=== PATIENT | female | born 1980 | race African-American/Black ===

== ENCOUNTER 2018-09-10 10:38 | Emergency (ER) | payer OTHER ==
[~2018-09-10] VITALS: Ht 154.9 cm; Wt 61.2 kg
[2018-09-10 10:58] LABS: URINE BILIRUBIN NEGATIVE (Negative); URINE BLOOD NEGATIVE (Negative); URINE CLARITY CLEAR; URINE COLOR YELLOW; URINE GLUCOSE-RANDOM* NEGATIVE (Negative); URINE KETONES NEGATIVE (Negative); URINE LEUKOCYTES-REFLEX NEGATIVE (Negative); URINE NITRITE-REFLEX NEGATIVE (Negative); URINE PROTEIN (DIPSTICK) NEGATIVE (Negative); URINE SPECIFIC GRAVITY 1.025 (1.005-1.035)
[2018-09-10] MEDS ORDERED: TUMERIC (11:06)
[2018-09-10] MEDS ORDERED: GINSENG100 MG PO (11:06)
[2018-09-10] MEDS ORDERED: VITAMIN A10000 UNI3 PO (11:06)
[2018-09-10] MEDS ORDERED: IBUPROFEN 600600 M1 PO (11:06)
[2018-09-10 12:12] LABS: HEMATOCRIT 29.6 % (37.0-47.0); HEMOGLOBIN 9.3 gm/dL (12.0-15.0); MCH 30.5 pg (26.0-34.0); MCHC 31.6 g/dL (28.0-37.0); MCV 96.8 fL (80.0-100.0); RBC 3.05 mil/uL (4.20-5.00); RDW 18.1 % (10.5-14.5); WBC 8.8 thou/uL (4.0-11.0)
[2018-09-10 12:23] LABS: CALCIUM 7.8 mg/dL (8.5-10.1); CREATININE 0.6 mg/dL (0.6-1.0); POTASSIUM 3.6 mmol/L (3.5-5.1)
[2018-09-10] MEDS ORDERED: CYCLOBENZAPRINE5 MG PO (12:51)
[2018-09-10] MEDS ORDERED: NORCO 10-325 T1 EACH PO (12:51)
[2018-09-10 13:15] VITALS: BP 102/66
== END 2018-09-10 13:17 | disposition home or self-care (01) ==
LOC: ER 10:38
PROVIDERS: Physician Assistant
DX: M54.41 Lumbago with sciatica, right side (principal); M79.661 Pain in right lower leg; M41.9 Scoliosis, unspecified; M79.7 Fibromyalgia; E03.9 Hypothyroidism, unspecified

== ENCOUNTER → 2018-11-06 | Outpatient (CLI) | payer OTHER ==
[~2018-11-06] MED LIST: CYCLOBENZAPRINE5 MG PO; GINSENG100 MG PO; IBUPROFEN 600600 M1 PO; NORCO 10-325 T1 EACH PO; TUMERIC; VITAMIN A10000 UNI3 PO
== END ==
LOC: NUC 15:28
DX: M81.0 Age-related osteoporosis without current pathological fracture (principal)

== ENCOUNTER → 2018-11-06 | Outpatient (CLI) | payer OTHER | LOC: RAD 09:12 | DX: M41.86 Other forms of scoliosis, lumbar region (principal) ==

== ENCOUNTER 2018-11-21 16:00 | Inpatient (IN) | payer OTHER ==
[~2018-11-21] VITALS: Ht 154.9 cm; Wt 58.9 kg
--- NOTE | ~2018-11-21 | HC ---
[facility] [place] [address] CONSULTATION Name: KELSEA KENNY Room #: 208-P ADM IN M.R.#: [id number] Admission: 11/21/18 ������������������ Attend Phys: Max Moran MD Discharge: ������������������ Date of : 78 Report #: [id number] THIS REPORT FOR: //name// [facility]: [facility] DATE OF SERVICE: 11/22/2018 REASON FOR CONSULTATION: Electrolyte abnormalities. HISTORY OF PRESENT ILLNESS: This 38-year-old patient, 14 years ago had bariatric surgery. Subsequently, she has moved to 2 [place] cities. She has scoliosis, worsening osteoporosis, diagnosis of fibromyalgia and now worsening right hip pain and was admitted and found to have rather dramatic hypocalcemia and hypophosphatemia and vitamin D deficiency. Of note, the calcium was 5.4 with an albumin of 2.3. The magnesium was 2, phosphorus 1.2 and vitamin D level was vanishingly low with an appropriately high PTH. PAST MEDICAL HISTORY: She had the bariatric surgery. She has had previous cholecystectomy, diagnosis of scoliosis. She did lose from 360 down to 130 pounds with her bariatric surgery and she does have peripheral neuropathy. HOME MEDICATIONS: Include Fosamax once weekly, p.r.n. ibuprofen, Synthroid 100 mcg daily, Lyrica 75 mg b.i.d., vitamin A, Trintellix 10 mg daily and Ativan. FAMILY HISTORY: Noncontributory. SOCIAL HISTORY: No cigarettes or alcohol. Recently moved here from [place]. PHYSICAL EXAMINATION: GENERAL: A chronically ill-appearing thin patient, somewhat in distress from right hip pain. SKIN: Unremarkable. SKELETAL: Scoliosis. HEENT: Extraocular movements are full. Vision intact. Hearing intact. Mucous membranes are dry. NECK: Veins are flat. CHEST: Clear to auscultation. HEART: Regular. ABDOMEN: Soft and nontender. EXTREMITIES: Show trace peripheral edema. LABORATORY DATA: As mentioned includes also a hemoglobin of 9.8, platelets of 241. Sodium 141, potassium 3.5, chloride 108, bicarbonate 26, creatinine 0.5, calcium 5.4, phosphorus 1.2, and albumin 2.3. [facility] [address] [place] [address] CONSULTATION Name: KELSEA KENNY Room #: 208-P [facility] IN M.R.#: [id number] Admission: 11/21/18 ������������������ Attend Phys: Max Moran MD Discharge: ������������������ Date of : 79 Report #: [id number] ASSESSMENT: Hypocalcemia with vitamin D deficiency. She has rather dramatic vitamin D deficiency with essentially unmeasurable 25-hydroxy D, appropriately high PTH, very low calcium and phosphorus, this is obviously very chronic. She has severe osteoporosis. She needs replenishment with lots of calcium and phosphorus and vitamin D. Her magnesium is okay, which is good and once that is all repleted, we can consider the use of bisphosphonates, but certainly would hold them. In the meantime, I will try to rebuild her bones from her severe vitamin D deficiency and obvious osteomalacia and we will work on that. I would recommend Endocrinology consultation for more expert guidance along these lines here in the hospital. We have ordered calcium, phosphorus and vitamin D for her. ��������������������������������������������� ���������������������������������������� By: ��������������������������������������������� [id number] Early MD /nt
--- NOTE | ~2018-11-21 | HC ---
[facility] [place] [address] CONSULTATION Name: KELSEA KENNY Room #: 208-P [facility] IN M.R.#: [id number] Admission: 11/21/18 ������������������ Attend Phys: Max Moran MD Discharge: ������������������ Date of : 79 Report #: [id number] THIS REPORT FOR: //name// CC: [facility] DATE OF SERVICE: 11/22/2018 REASON FOR CONSULTATION: Right hip pain. HISTORY OF PRESENT ILLNESS: The patient is a 38-year-old female who reportedly fell hard into her door while going up the steps approximately 6 weeks ago. She denied loss of consciousness and reported right posterior hip and groin pain that has progressively worsened over the last few weeks. She has been ambulating with a cane since and is finding it increasingly difficult to put weight on that hip. She denies fevers or chills. Denies numbness or tingling in the extremities and denies any other musculoskeletal problems. REVIEW OF SYSTEMS: See HPI for 3 systems. PAST MEDICAL HISTORY: Significant for scoliosis, fibromyalgia, hypothyroidism and osteoporosis with a T score of -4 that has been recently diagnosed. REPORTED HOME MEDICATIONS: Include lorazepam, turmeric, ginseng, vitamin A, ibuprofen, Trintellix, levothyroxine, pregabalin and then some type of medication for osteoporosis that has just been started. ALLERGIES: No known drug allergies. SOCIAL HISTORY: Denies smoking or drinking alcohol. She had three births, two living children. 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 PAST SURGICAL HISTORY: Bariatric surgery, appendectomy and . LABORATORY DATA: On 07/21/2018, shows a white blood cell count of 7, hemoglobin 9.8, hematocrit 30.5 and platelet count 241. ESR is elevated at 43. Sodium 141, potassium 3.5, creatinine is low at 0.5, calcium is critically low at 5.7, phosphorus was low at 1.1. Alkaline phosphatase is elevated at 307. Albumin is low at 2.7. Vitamin D level is very low. PHYSICAL EXAMINATION: GENERAL: The patient is alert and oriented. She interacts appropriately. She is well-developed, well-nourished female in no acute distress. VITAL SIGNS: Most recent vital signs show temperature of 36.4, heart rate is 59, respiratory rate is 18, blood pressure 120/75 and pulse oximetry is 100% on room air. [facility] [address] [place] [address] CONSULTATION Name: KELSEA KENNY Room #: 208-P [facility] IN ..#: [id number] Admission: 11/21/18 ������������������ Attend Phys: Max Moran MD Discharge: ������������������ Date of : 79 Report #: [id number] EXTREMITIES: Examination of her bilateral lower extremities, sensation is intact to light touch throughout. She has brisk capillary refill. EHL, FHL, dorsiflexion and plantar flexion are intact. Inversion and eversion of her right ankle is 5/5. She has some mild diffuse tenderness in her right lower extremity. No pain with knee or ankle range of motion. There is significant amount of pain in the groin with right hip range of motion. Straight leg raise is painful, but does not produce any radiating pain posteriorly. The knee is grossly stable. There is mild diffuse tenderness again in the entire lower extremity, not significantly worsened in the thigh or hip joint. There is no lumbar tenderness. No SI joint tenderness. There is no posterior tenderness. The greater trochanter is tender as is the other portion of her thigh. There is no significant swelling and no erythema. RADIOGRAPHS: AP pelvis and AP lateral of the right hip do not show any definite fracture or significant abnormality. She does have some mild arthrosis and she does have some diffuse osteopenia. IMPRESSION AND PLAN: Right hip pain after a fall approximately 6 weeks ago that has progressively worsened. I do have a low suspicion for septic hip joint. She most likely has a contusion or a fracture. An MRI is pending today. We will continue to closely monitor her. She also has a diagnosis of osteoporosis and medicine most likely is managing this. Questions were encouraged and answered to the best of my ability. I will continue to closely monitor her. ��������������������������������������������� ���������������������������������������� By: ��������������������������������������������� [id number] Triny Ceron MD /santy
[2018-11-21 16:12] VITALS: BP 103/69
[2018-11-21] MEDS ORDERED: LYRICA 75 MG CA75 MG PO (16:41)
[2018-11-21] MEDS ORDERED: BRINTELLIX10 MG PO (16:41)
[2018-11-21] MEDS ORDERED: SYNTHROID100 MC1 PO (16:41)
[2018-11-21 17:15] LABS: ABSOLUTE NEUTROPHILS 3.5 thou/uL (1.4-8.2); BASOPHILS 0.5 % (0.0-2.0); EOSINOPHILS 0.4 % (0.0-3.0); HEMATOCRIT 30.5 % (37.0-47.0); HEMOGLOBIN 9.8 gm/dL (12.0-15.0); LYMPHOCYTES 41.2 % (24.0-44.0); MCH 27.6 pg (26.0-34.0); MCHC 32.1 g/dL (28.0-37.0); MONOCYTES 8.2 % (1.0-8.0); PLATELET COUNT 241 thou/uL (150-400); POLYS 49.7 % (36.0-66.0); RBC 3.55 mil/uL (4.20-5.00)
[2018-11-21 17:26] LABS: CREATININE 0.5 mg/dL (0.6-1.0); POTASSIUM 3.5 mmol/L (3.5-5.1)
[2018-11-21 17:29] LABS: CALCIUM 5.9 mg/dL (8.5-10.1)
[2018-11-21 17:35] LABS: ALBUMIN 2.7 g/dL (3.4-5.0); TOTAL BILIRUBIN 0.5 mg/dL (<0.1-1.0); TOTAL PROTEIN 7.4 g/dL (6.4-8.2)
[2018-11-21 18:42] VITALS: BP 111/63
[2018-11-21 18:48] VITALS: BP 97/66
[2018-11-21 19:51] VITALS: BP 104/70
[2018-11-21 20:11] LABS: CREATININE 0.5 mg/dL (0.6-1.0); PHOSPHORUS 1.1 mg/dL (2.5-4.9)
[2018-11-21 20:17] LABS: CALCIUM 5.7 mg/dL (8.5-10.1)
[2018-11-21] MEDS ORDERED: ATIVAN0.5 MG PO (23:40)
--- NOTE | 2018-11-22 02:34 | NUR ---
GOT REPORT JUST PRIOR TO SHIFT CHANGE. PATIENT ARRIVED SHORTLY AFTER RETAIL SERVICE REPRESENTATIVE. SETTLED INTO BED. DENIED PAIN. WHEN NEXT VISITED, SHE C/O PAIN AGAIN. GAVE PAIN MEDS CHARTED. ADMITTED HER INTO THE COMPUTER, DID INITIAL ASSESSMENT. PATIENT HAD CRITICAL LOW CALCIUM LAB. CALLED CONSULTS TO DR. KWONG, DR. BACK. ADDED ORDERS NEEDED. RESCHEDULED MRI'S FOR MORNING. ASSESSMENTS CHARTED.
[2018-11-22 04:59] VITALS: BP 120/75
[2018-11-22 08:00] VITALS: BP 97/63
[2018-11-22 08:03] LABS: ALBUMIN 2.3 g/dL (3.4-5.0)
[2018-11-22 08:08] LABS: CALCIUM 5.4 mg/dL (8.5-10.1)
[2018-11-22 08:14] LABS: CALCIUM 5.4 mg/dL (8.5-10.1); CREATININE 0.5 mg/dL (0.6-1.0); PHOSPHORUS 1.2 mg/dL (2.6-4.7)
--- NOTE | 2018-11-22 13:47 | NUR ---
Case opened to follow for dc planning. Pt is a&ox4. 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 She will not be eligable for the hospital insurance plan until December 30;however she has medicare part A benefits as she is on social security disability for a number of years. She lives in a second floor apt and tripped on a step falling against the wall going to her apt. She is awaiting further testing to see if there is a fracture. Cm role introduced. The pt was indep with gait, adl's, and driving prior to admission. She has a hx of scoliosis and used a cane. AD/dpoa information provided to the pt as she does not have one. Will follow along and await workup and therapy recommendations to determine if she needs any dc planning.
[2018-11-22 17:01] VITALS: BP 99/70
--- NOTE | 2018-11-22 18:09 | NUR ---
ASSUMED PATIENT CARE THIS AM. PATIENT LYING IN BED, A&O. ROOM AIR. NO N/V, N/T STATED. PAIN MANAGED WITH ORAL MEDICATION. LOW FALL RISK. UP X1 ASSIST WITH WALKER. SLOW STEADY GAIT. TOLERATING DIET. PATIENT WAITING ON ORTHO TO SEE HER, CONSULT CALLED YESTERDAY.
[2018-11-22 19:18] VITALS: BP 101/65
[2018-11-22 21:17] LABS: URINE BILIRUBIN NEGATIVE (Negative); URINE BLOOD 1+ (Negative); URINE CLARITY CLEAR; URINE COLOR YELLOW; URINE GLUCOSE-RANDOM* NEGATIVE (Negative); URINE KETONES NEGATIVE (Negative); URINE LEUKOCYTES TRACE (Negative); URINE NITRITE POSITIVE (Negative); URINE PROTEIN (DIPSTICK) NEGATIVE (Negative); URINE SPECIFIC GRAVITY 1.015 (1.005-1.035); URINE UROBILINOGEN 0.2 E.U./dl (0.2-1.0)
[2018-11-22 21:26] LABS: CASTS None Seen /LPF (None Seen); MUCUS 0-3 Light strn/LPF (None Seen); SQUAMOUS 0-3 Few /LPF (0-3); URINE RBC 3-10 Few /HPF (0-2); URINE WBC 6-15 Few /HPF (0-5)
[2018-11-22 21:27] LABS: BACTERIA >30 Many /HPF (None Seen); CRYSTALS None Seen /LPF (None Seen)
[2018-11-23 03:59] VITALS: BP 88/53
[2018-11-23 06:05] LABS: ALBUMIN 2.1 g/dL (3.4-5.0); CREATININE 0.5 mg/dL (0.6-1.0); PHOSPHORUS 1.4 mg/dL (2.5-4.9)
[2018-11-23 06:07] LABS: CALCIUM 5.1 mg/dL (8.5-10.1)
[2018-11-23 07:56] VITALS: BP 91/54
--- NOTE | 2018-11-23 08:58 | NUR ---
ASSUME CARE 1900. PT STABLE. BP RUNS LOW WITH MAP >60. HIP PAIN WITH MOVEMENT. TOLERATES ACTIVTIY MODERATELY. PROGRESSING SLOWLY WITH POC. PLAN IS FOR ORTHO TO SEE PT AND DETERMINE POC. WILL CONTINUE TO MONITOR AND FOLLOW WITH POC
[2018-11-23 15:41] VITALS: BP 90/58
--- NOTE | 2018-11-23 20:00 | NUR ---
PATIENT ALERT AND ORIENTED AND PLEASANT. PATIENT CONTINUES TO HAVE PAIN IN UPPER RIGHT FEMUR AND RIGHT HIP AREA. SHE WAS ABLE TO ABULATE WITH SBA TO BATHROOM AND BACK TO HER BED. HEATING PAD HELPS THE PAIN. PATIENT COMPLAINED OF TINGLING IN LOWER EXTREMITIES AND FACE BUT THOUGHT IT WAS BECAUSE SHE SOMETIMES HOLDS HER BREATH. IN THE AFTERNOON TINGLING WORSENED AND HER FINGERS FLEXED INTO FIST AND SHE INDICATED SHE COULD NOT OPEN THEM. PRIMARY AND NEPHROLOGY NOTIFIED AND CALCIUM GLUCONATE PUSH AND DRIP ORDER. DAUGHTER WAS AT BEDSIDE THIS AFTERNOON.
[2018-11-23 20:01] VITALS: BP 100/66
--- NOTE | 2018-11-24 04:22 | NUR ---
ASSESSMENTS CHARTED. AT START OF SHIFT PATIENTS HANDS WERE CONTRACTED AND PT STILL FEELING TINGLING ALONG JAWLINE. SHIFT PROGRESSED HANDS EASED UP AND PATIENT BEGAN TU GET NORMAL FUNCTIONING OF HER HANDS BACK. PLAN OF CARE TO CONTINUE TO REGULATE ELECTROLYTES.
[2018-11-24 06:00] LABS: ALBUMIN 2.1 g/dL (3.4-5.0); CALCIUM 6.2 mg/dL (8.5-10.1); CREATININE 0.5 mg/dL (0.6-1.0); PHOSPHORUS 1.9 mg/dL (2.5-4.9); POTASSIUM 3.3 mmol/L (3.5-5.1)
[2018-11-24 06:06] VITALS: BP 111/59
[2018-11-24 08:23] VITALS: BP 114/78
[2018-11-24 16:05] VITALS: BP 112/73
[2018-11-24 20:07] VITALS: BP 112/83
--- NOTE | 2018-11-25 02:04 | NUR ---
ASSESSMENTS CHARTED. PT SCHEDULED FOR SURGERY IN THE MORNING TO REPAIR/REPLACE FEMUR FRACTURE. STILL RECEIVING ELECTROLYTE REPLACEMENT THERAPY. SPOKE WITH DAUGHTER LALITA ABOUT SURGERY.
[2018-11-25 04:01] LABS: CREATININE 0.4 mg/dL (0.6-1.0); PHOSPHORUS 3.6 mg/dL (2.5-4.9)
[2018-11-25 04:07] LABS: CALCIUM 5.6 mg/dL (8.5-10.1)
[2018-11-25 05:50] VITALS: BP 91/66
[2018-11-25 07:03] VITALS: BP 98/54
[2018-11-25 11:43] VITALS: BP 94/56
--- NOTE | 2018-11-25 12:47 | NUR ---
CONSULTED TO PLACE PICC PRE-OP. CONSENT AND ORDER NOTED. THE PROCEDURE WELL BENIFITS AND RISKS DISCUSSED WITH THE PATIENT AND SHE DENIED FURTER QUESTIONS. THE LEFT UPPER ARM BASILIC WAS WIDLEY PATENT. A #4F DOUBLE LUMEN POWER PICC WAS PLACED PER HOSPITAL POLICY AFTER A BEDSIDE TIMEOUT WAS COMPLETE. PICC WAS TRIMMED TO 42CM AND ADVANCED WITHOUT DIFFICULTY. A STAT CHEST XRAY REQUESTING LINE BE REPOSITIONED 5CM. USING STERILE TECHNIQUE THE LINE WAS WITHDRAWN 5CM AND NEW DRESSING APPLIED. A 2ND STAT CHEST XRAY NOW SHOWING LINE IN THE CAJ AND IN GOOD POSITION FOR USE. LINE IS RELEASED FOR USE
[2018-11-25 15:13] VITALS: BP 95/57
--- NOTE | 2018-11-25 17:44 | NUR ---
met with patient at her request she has questions regarding insurance and her benefits. She questions if she qualifies for disability. 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 She would not be disabled for 12 plus months. Encouraged patient to call Human resources regarding any benfits she may have and to answer regarding her time off and PTO.
--- NOTE | 2018-11-25 19:36 | NUR ---
ASSUMED PATIENT CARE THIS AM. PATIENT A&O, ROOM AIR. UP X1 ASSIST WITH WALKER, PATIENT ABLE TO AMBULATE TO BATHROOM, SLOW STEADY GAIT. PAIN MANAGED WITH ORAL/IV MEDICATIONS. PLAN FOR SURGERY TOMORROW. CONSENT SIGNED IN CHART.
[2018-11-26 03:53] VITALS: BP 102/60
[2018-11-26 05:19] LABS: CALCIUM 6.5 mg/dL (8.5-10.1); CREATININE 0.5 mg/dL (0.6-1.0); PHOSPHORUS 4.6 mg/dL (2.5-4.9); POTASSIUM 4.3 mmol/L (3.5-5.1)
[2018-11-26 08:11] VITALS: BP 105/63
--- NOTE | 2018-11-26 08:18 | NUR ---
ASSESSMENTS CHARTED. PATIENT HAS NEW PICC LINE IN UPPER LEFT ARM. NPO SINCE MIDNIGHT IN PREPARATION FOR ORTHO SURGERY TODAY. C/O PAIN, MEDS GIVEN CHARTED. PATIENT IS CONCERNED WITH BEING ABLE TO AFFORD BEING OFF AFTER SURGERY SINCE HER SHORT TERM INSURANCE DOES NOT KICK IN UNTIL DECEMBER. REQUESTED TO SPEAK TO ENCODING CLERK AND NEEDS TO CALL HR.
[2018-11-26 10:47] LABS: HEMATOCRIT 24.5 % (37.0-47.0); HEMOGLOBIN 7.8 gm/dL (12.0-15.0); MCH 26.9 pg (26.0-34.0); MCHC 31.8 g/dL (28.0-37.0); MCV 84.7 fL (80.0-100.0); RBC 2.89 mil/uL (4.20-5.00); WBC 4.9 thou/uL (4.0-11.0)
[2018-11-26 14:01] VITALS: BP 111/78
--- NOTE | 2018-11-26 14:56 | NUR ---
ASSESSMENT DOCUMENTED. VSS. BILAT LOWER EXT EDEMA. WAITIN FOR R HIP SX. PT RESTING IN BED WITH CALL LIGHT IN REACH. WILL CONTINUE TO MONITOR.
[2018-11-26 21:41] VITALS: BP 110/68
[2018-11-27 01:43] VITALS: BP 103/65
[2018-11-27 04:28] VITALS: BP 100/57
[2018-11-27 05:03] LABS: RDW 15.2 % (10.5-14.5)
[2018-11-27 05:05] LABS: MCH 26.7 pg (26.0-34.0); MCHC 31.7 g/dL (28.0-37.0); MCV 84.1 fL (80.0-100.0); RBC 2.34 mil/uL (4.20-5.00); WBC 7.6 thou/uL (4.0-11.0)
[2018-11-27 05:10] LABS: ALBUMIN 1.7 g/dL (3.4-5.0); CREATININE 0.7 mg/dL (0.6-1.0); PHOSPHORUS 2.3 mg/dL (2.5-4.9); POTASSIUM 3.8 mmol/L (3.5-5.1)
[2018-11-27 05:36] LABS: HEMATOCRIT 19.7 % (37.0-47.0); HEMOGLOBIN 6.2 gm/dL (12.0-15.0)
[2018-11-27 05:43] LABS: CALCIUM 9.2 mg/dL (8.5-10.1)
--- NOTE | 2018-11-27 08:10 | NUR ---
PT. AOX4 AT SHIFT CHANGE; C/O PAIN PRN PAIN MEDICATION GIVEN; ABLE TO WALK TO RESTHROOM; ABLE TO REST MOST OF THE NIGHT; LOW HMG DURING EARLY LABS; SLAG EXPANDER NOTIFIED; ORDERS RECEIVED; ASSESSMENT CHARGED; FOLLOWING POC; PASSED ON REPORT.
[2018-11-27 09:24] VITALS: BP 94/57
[2018-11-27 14:43] VITALS: BP 98/58
[2018-11-27 16:50] VITALS: BP 106/73; BP 112/73; BP 116/71
[2018-11-27 19:17] VITALS: BP 116/71
--- NOTE | 2018-11-27 19:30 | NUR ---
Pt alert and oriented today. Spent time on cell phone and visiting with family. Pt ambulated in [place] with assist of PT. OT assisted pt with doing sponge bath. Pt medicated for right hip and right leg pain with adequate pain relief-see medication record. Sinus rhythm. Room air. Good appetite. Voiding without any reported difficutly. Right hip drsg intact-see wound intervention. PICC line intact right upper arm. Report given to RN assuming care.
--- NOTE | 2018-11-27 19:30 | NUR ---
Pt transfused with one unit PRBC today.
--- NOTE | 2018-11-28 03:46 | NUR ---
AOX4, USING CELPHONE MOST OF THE TIME. COMPLAINT OF PAIN ON THE RIGHT HIP GOING TO THE BACK AND RIGHT THIGH WHERE THE INCISION IS, MANAGED WITH PRN PAIN MEDICATION. CLEAR LUNG SOUNDS, ON ROOM AIR. ON REGULAR DIET, PATIENT REQUESTED FOR A SANDWICH FOR HER MIDNIGHT SNACK. ABLE TO STAND UP AND WALKS TO THE BATHROOM USING WALKER AND GAITBELT WITH STANDBY ASSIST. BM NOTED 2X. SCD ON. SCATTERRED BRUISING ON UPPER EXTREMITIES NOTED. TRIPLE LUMEN PICC ON LEFT UPPER ARM WITH GOOD BLOOD RETURN AND FLUSHES WELL. FF UP POC.
[2018-11-28 03:49] VITALS: BP 89/65
[2018-11-28 04:09] LABS: ABSOLUTE NEUTROPHILS 4.6 thou/uL (1.4-8.2); BASOPHILS 0.3 % (0.0-2.0); EOSINOPHILS 0.5 % (0.0-3.0); HEMATOCRIT 23.2 % (37.0-47.0); HEMOGLOBIN 7.7 gm/dL (12.0-15.0); LYMPHOCYTES 35.4 % (24.0-44.0); MCH 27.8 pg (26.0-34.0); MCV 84.3 fL (80.0-100.0); MONOCYTES 8.1 % (1.0-8.0); PLATELET COUNT 125 thou/uL (150-400); POLYS 55.7 % (36.0-66.0); RBC 2.76 mil/uL (4.20-5.00); RDW 15.3 % (10.5-14.5); WBC 8.2 thou/uL (4.0-11.0)
[2018-11-28 08:05] VITALS: BP 97/62
[2018-11-28] MEDS ORDERED: PERCOCET PO (11:40)
[2018-11-28 12:05] VITALS: BP 98/68
--- NOTE | 2018-11-28 13:00 | NUR ---
5N acute rehab evaling pt for possible admission today. Pt's goal is to return home independently and return to work. Will follow.
--- NOTE | 2018-11-28 14:16 | O ---
[facility] [place] [address] OPERATIVE REPORT Name: KELSEA KENNY Room #: 208-P [facility] IN M.R.#: [id number] Admission: 11/21/18 ������������������ Attend Phys: Max Moran MD Discharge: ������������������ Date of : 79 Report #: [id number] THIS REPORT FOR: //name// CC: Max Moran [facility] DATE OF SERVICE: 11/26/2018 PREOPERATIVE DIAGNOSIS: Right femoral neck stress fracture with underlying osteomalacia. POSTOPERATIVE DIAGNOSIS: Right femoral neck stress fracture with underlying osteomalacia. PROCEDURE: Treatment of right femoral neck stress fracture with an IM nail. SURGEON: Jose Luis Blackmon MD. COST ACCOUNTANT: Yaneth Doll PA-C. ANESTHESIA: LMA. IMPLANTS: Ag and Nephew size 13 short InterTan nail with a size 95/90 compression screw and lag screw and a size 32.5 distal locking screw. ESTIMATED BLOOD LOSS: 50 mL. COMPLICATIONS: None. SPECIMENS: None. CONDITION UPON LEAVING THE OPERATING ROOM: Stable. INDICATIONS FOR PROCEDURE: The patient is a 38-year-old female who had a gastric bypass surgery in 2004. She has had significant trouble with electrolyte imbalance including, calcium homeostasis. For the past year or so, she had progressive pain in her right hip. She had an MRI scan of her hip showing to have a stress fracture of the femoral neck as well as osteomalacia of her femoral neck and head. This is likely due to her calcium imbalance. After discussion with her, she elected for treatment with an IM nail. DESCRIPTION OF PROCEDURE: Risks, benefits, alternatives, complications were discussed in detail with the patient including but not limited to risk of anesthesia, risk of damage to nerves, arteries, blood vessels, risk for infection, bleeding, risk for continued hip pain and need for reoperation. Informed consent was obtained from the patient. The right hip was appropriately [address] [address] OPERATIVE REPORT Name: KELSEA KENNY Room #: 208-P [facility] IN M.R.#: [id number] Admission: 11/21/18 ������������������ Attend Phys: Max Moran MD Discharge: ������������������ Date of : 79 Report #: [id number] marked in the preoperative holding area. IV Ancef was given for preoperative antibiotics. She was brought to the operating room and LMA anesthesia was induced without complication. She was transferred to the [place] table and the right lower extremity was placed in slight traction, left lower extremity was scissored. Fluoroscopic imaging was brought in to verify the adequate images could be taken. Right hip and lower extremity were prepped and draped in normal sterile fashion. Timeout was performed properly identifying the patient and procedure as well as instrumentation. All in the operating room were in agreement. A 2-inch incision proximal to the tip of the greater trochanter was made with 10 blade through the skin and deep fascia was incised longitudinally. Threaded tip guidewire was placed on the tip of the greater trochanter and taken down to the level of the lesser trochanter under AP and lateral images for our interportal. Interportal was then reamed and a size 13 short InterTan nail was then placed down the femoral canal. This was seated to the appropriate level and the compression and lag screw guide was then placed and threaded tip guidewire was taken up into the femoral head and determined to be in the center-center position. After this, this was measured and found to be a size 95. The inferior compression screw path was then reamed and the derotation device was placed. The pass for the lag screw was then reamed and a 95 lag screw was placed. The size 90 compression screw was then placed and found to be in good position. One distal locking screw was then placed in the dynamic slot. This was 32.5 mm in length. After this, final fluoroscopic images were brought in to verify adequate placement of hardware as was the case. The wounds were then thoroughly irrigated with normal saline and closed with 2-0 Vicryl, skin chris and soft dressing was applied. The patient tolerated this procedure well and went to recovery room under care of anesthesia postoperatively. ��������������������������������������������� <ELECTRONICALLY SIGNED> ���������������������������������������� By: Jose Luis Blackmon MD ��������������������������������������������� 11/28/18 1416 [id number] Jose Luis Blackmon MD /nt
--- NOTE | 2018-11-28 15:41 | NUR ---
ASSUMED PATIENT CARE THIS AM. PATIENT A&OX4, ROOM AIR. UP X1 ASSIST WITH GAIT BELT AND WALKER. PAIN MANAGED WITH ORAL MEDICATION. IV MEDICATION GIVEN THIS AM FOR BREAKTHROUGH PAIN. BRANDI DRESSING, D/I, SMALL DRY DRAINAGE NOTED. PATIENT EDUCATION GIVEN FOR BRANDI DRESSING AND MANAGEMENT OF DRESSING. NO OTHER COMPLAINTS STATED. TOLERATING DIET. DAUGHTER AT BEDSIDE THIS AFTERNOON. DEONDRE DOUBLE LUMEN PICC LINE IN PLACE. PLAN TO DISCHARGE PATIENT TO REHAB THIS EVENING.
[2018-11-28] MEDS ORDERED: TUMS PO (15:54)
[2018-11-28] MEDS ORDERED: PHOS-NAK PACKE1 EACH PO (15:54)
[2018-11-28] MEDS ORDERED: VITAMIN D50000 UNIT PO (15:55)
[2018-11-28 17:20] VITALS: BP 99/65
== END 2018-11-28 18:04 | DRG 480 ==
LOC: ER 16:00 → 2N 18:19 → EROBS 18:19 → 2N 18:57
PROVIDERS: Emergency Medicine; Hospitalist; Internal Medicine Nephrology; Orthopaedic Surgery; ADMIT Hospitalist
PROC: 02HV33Z Insertion of Infusion Device into Superior Vena Cava, Percutaneous Approach (ICD-10-PCS; principal; 2018-11-25)
PROC: 0QH606Z Insertion of Intramedullary Internal Fixation Device into Right Upper Femur, Open Approach (ICD-10-PCS; 2018-11-26)
PROC: 30233N1 Transfusion of Nonautologous Red Blood Cells into Peripheral Vein, Percutaneous Approach (ICD-10-PCS; 2018-11-27)
DX: M84.359A Stress fracture, hip, unspecified, initial encounter for fracture (principal); E43 Unspecified severe protein-calorie malnutrition; K90.9 Intestinal malabsorption, unspecified; E03.9 Hypothyroidism, unspecified; G62.9 Polyneuropathy, unspecified; E55.9 Vitamin D deficiency, unspecified; M81.0 Age-related osteoporosis without current pathological fracture; M41.9 Scoliosis, unspecified; M79.7 Fibromyalgia; S70.11XA Contusion of right thigh, initial encounter; Z90.49 Acquired absence of other specified parts of digestive tract; Z98.84 Bariatric surgery status; W18.39XA Other fall on same level, initial encounter; Y93.01 Activity, walking, marching and hiking; Y92.89 Other specified places as the place of occurrence of the external cause; Y99.8 Other external cause status; Z87.891 Personal history of nicotine dependence
CPT/HCPCS: 10194; 27000; 50010; 50101; 50386; 51412; 51538; 55445; 56524; 57092; 57103; 62110; 62900; 70005

== ENCOUNTER 2018-11-28 14:23 | Inpatient (IN) | payer OTHER ==
[~2018-11-28] VITALS: Ht 154.9 cm; Wt 59.0 kg
[~2018-11-28 14:23] MED LIST changes: +ATIVAN0.5 MG PO; +BRINTELLIX10 MG PO; +LYRICA 75 MG CA75 MG PO; +PERCOCET PO; +SYNTHROID100 MC1 PO
[2018-11-28] MEDS ORDERED: PHOS-NAK PACKE1 EACH PO (15:54)
[2018-11-28] MEDS ORDERED: TUMS PO (15:54)
[2018-11-28] MEDS ORDERED: VITAMIN D50000 UNIT PO (15:55)
[2018-11-28 18:00] VITALS: BP 105/70
--- NOTE | 2018-11-28 19:31 | NUR ---
PT ARRIVED IN THE UNIT AT 1800 FROM CCU. PT ALERT AND ORIENTED*4. C/O RIGHT HIP AND LOWER BACK PAIN /, PT PRE-MEDICATED PRIOR TO TRANSFER AT 1625. RIGHT HIP BRANDI DRESSING REMAINS INTACT AND SMALL DRIED DRAINAGE NOTED. SITE AROUND DRESSING IS WNL. PT BEARING FULL WEIGHT ON EXTREMITY AND TOLERATES WELL. PICC ON LEFT UPPER ARM REMAINS INTACT AND PATENT. PT HAS 1+ PITTING EDEMA IN BLE, EXTREMITIES ELEVATED. VITALS STABLE. PT UP WITH 1 PERSON MIN ASSIST AND TOLERATED WELL. Q1H VISUAL CHECKS. CALL LIGHT WITHIN REACH. FALL PRECAUTIONS IN PLACE
[2018-11-28 21:08] VITALS: BP 90/60
--- NOTE | 2018-11-29 00:28 | NUR ---
PT ALERT AND ORIENTED X 4. AMB TO BR WITH WALKER AND ASSIST X 1 WITHOUT DIFFICULTY. BRANDI DRESSING TO RIGHT HIP DRY AND INTACT. PT C/O PAIN IN RIGHT HIP AND BACK. PERCOCET GIVEN PRN AND PT SLEEPING UPON REASSESSMENT. BED ALARM ON FOR SAFETY. PT APPEARS TO BE SLEEPING ON HOURLY ROUNDS.
[2018-11-29 06:06] LABS: HEMATOCRIT 22.1 % (37.0-47.0); HEMOGLOBIN 7.1 gm/dL (12.0-15.0); MCHC 32.1 g/dL (28.0-37.0); MCV 84.2 fL (80.0-100.0); RBC 2.63 mil/uL (4.20-5.00); RDW 15.4 % (10.5-14.5); WBC 6.6 thou/uL (4.0-11.0)
[2018-11-29 06:28] LABS: ALBUMIN 1.7 g/dL (3.4-5.0); CREATININE 0.4 mg/dL (0.6-1.0); PHOSPHORUS 1.6 mg/dL (2.5-4.9); POTASSIUM 3.3 mmol/L (3.5-5.1)
[2018-11-29 06:47] LABS: CALCIUM 5.5 mg/dL (8.5-10.1)
--- NOTE | 2018-11-29 07:09 | NUR ---
CRITICAL CALCIUM 5.5 THIS MORNING. CALL PLACED TO MURPHY YANG NP WITH NO RESPONSE. DR. SHANTI RODRIGUEZ. REPORT GIVEN TO DAY NURSE ROBYN.
[2018-11-29 07:20] VITALS: BP 94/58
--- NOTE | 2018-11-29 08:13 | NUR ---
chart reviewed, pt up working with ot. intro to cm, team meeting and transition of care. pt is a & o x 4, and able to make he needs know. pt independent rt hospital. employed, has cane for use if needed. no past rehab or hh. will cont following as needed for dc needs.
--- NOTE | 2018-11-29 13:07 | NUR ---
PT ALERT AND ORIENTED TIMES FOUR. VSS, 98%RA. C/O PAIN PRN MEDICATION GIVEN WITH GOOD RELEIF. DRESSING TO LEFT HIP C/D/I. PT WORKED WELL WITH PT/OT UP WITH STANDBY ASSIST AND WALKER. PT TOLERATES MEDS AND MEALS. PT SLOWLY PROGRESSING TOWRADS POC GOALS.
[2018-11-29 19:24] VITALS: BP 91/55
--- NOTE | 2018-11-30 02:50 | NUR ---
assumed care at approx 1900 evening 11/29. pt sitting up in bed at change of shift resting and watching tv. pt pleasant and cooperative. pt up to bathroom to void before falling asleep. pts daughter visited later in evening. IVF infusing per picc line without difficulty. pt appears to be sleeping soundly with hourly rounding checks. bed alarm on and call light in reach. will continue to monitor.
[2018-11-30 07:32] LABS: ALBUMIN 1.9 g/dL (3.4-5.0); CREATININE 0.5 mg/dL (0.6-1.0); PHOSPHORUS 1.7 mg/dL (2.5-4.9); POTASSIUM 3.5 mmol/L (3.5-5.1)
[2018-11-30 07:59] LABS: CALCIUM 7.7 mg/dL (8.5-10.1)
[2018-11-30 08:00] VITALS: BP 108/74
--- NOTE | 2018-11-30 09:08 | NUR ---
ASSUMED CARE AT 0700. PATIENT IS ALERT AND ORIENTED X4. PATIENT HAS LEFT HIP BRANDI DRESSING THAT IS DRY AND INTACT. PATIENT IS UP IN CHAIR FOR MEALS. PATIENT UP TO THE BATHROOM WITH GAIT BELT AND WALKER TO VOID SHELLY COLORED URINE. PATIENT LUNGS ARE CLEAR AND DEMINISHED. ABD IS SOFT WITH BSX4. FALL AND SAFETY PROTOCOLS IN PLACE. C/O PAIN IN HER HIP. MEDICATED WITH PRN PAIN MED X2. PATIENT CONTINUES TO PROGRESS SLOWLY TOWARDS D/C GOALS. PATIENT HAS PICC LINE IN HER LEFT UPPER ARM. CALCIUM GLUCONATE INFUSING AT 50 CC/HR. CALCIUM LEVEL 7.7 TODAY. WILL CONTINUE TO MONITER.
[2018-11-30 19:39] VITALS: BP 111/68
--- NOTE | 2018-12-01 03:37 | NUR ---
PATIENT HAVING LESS NAUSEA BUT ALSO LESS PAIN RELIEF AFTER SWITCH FROM OXYCODONE TO HYDROCODONE. ONE TIME DOSE OF TORADOL HAS HELPED EASE HIP PAIN AND HEADACHE. SHE NOTES THAT THE HEADACHE NO LONGER HAS A THROBBING COMPONENT TO IT. ZOFRAN AT 0130 JUST IN CASE SHE BECOMES NAUSEOUS AGAIN, FOLLOWED BY A HYDROCODONE AT 0145. PLEASANT
[2018-12-01 07:30] VITALS: BP 94/62
--- NOTE | 2018-12-01 11:09 | NUR ---
ASSUMED CARES AT 0700. PT ALERT AND ORIENTED *4. C/O HEADACHE 04/09, ACETAMINOPHEN ADMINISTERED BY NOC AT 0700, NO CHANGE IN PAIN. HOSPITALIST CONSULTED AND RECEIVED ONETIME ORDER OF TRAMADOL AND PT VERBALISED IMPROVEMENT. NAUSEA AND EMESIS THIS AM AFTER BREAKFAST, ZOFRAN ADMINISTERED. PT STATED THAT NORCO AND MOST OPIOIDS HAVE BEEN MAKING HER NAUSEOUS. PICC LINE ON LEFT UPPER ARM REMAINS PATENT, CALCIUM GLUCONATE RUNNING AT 50ML/HR. PT CONTINUES TO HAVE PEDAL EDEMA, EXTREMITIES ELEVATED. RIGHT HIP DRESSING REMAINS INTACT, DRIED SECRETIONS NOTED ON THE DRESSING. PT BEARING TOTAL WEIGHT ON EXTREMITY TOLERATED. PT VERY TIRED AND SLEEPY TODAY, UP IN THE CHAIR FOR MEALS. ATE 50% OF HER BREAKFAST THEN HAD A LG EMESIS RIGHT AFTER. Q2H REPOSITION. Q1H VISUAL CHECKS. CALL LIGHT WITHIN REACH. FALL PRECAUTIONS IN PLACE
[2018-12-01 20:20] VITALS: BP 98/65
--- NOTE | 2018-12-02 01:00 | NUR ---
PERSISTENT HEADACHE DECREASED FROM 8/10 TO 5/10 AFTER INTIAL DOSE OF 600 MG PO MOTRIN. UP TO BATHROOM WITH STANDBY ASSIST, SOMETIMES NEEDING MINIMAL SUPPORT GETTING RIGHT LEG BACK IN BED.
--- NOTE | 2018-12-02 04:15 | NUR ---
VERY LITTLE NAUSEA THIS SHIFT AND ABLE TO TOLERATE FOOD FROM OUTSIDE TO SUPPLEMENT HOSPITAL FOOD. APPRECIATES COLD [place] SODA AND DENIES SYED FOR ZOFRAN. ABLE TO DRAW LABS ALBEIT SLOWLY, IV CALCIUM GLUCONATE CONTINUES
[2018-12-02 04:42] LABS: ALBUMIN 1.6 g/dL (3.4-5.0); CREATININE 0.6 mg/dL (0.6-1.0); PHOSPHORUS 2.1 mg/dL (2.5-4.9); POTASSIUM 3.7 mmol/L (3.5-5.1)
[2018-12-02 07:15] VITALS: BP 90/60
[2018-12-02 09:41] LABS: HEMATOCRIT 22.4 % (37.0-47.0); HEMOGLOBIN 7.3 gm/dL (12.0-15.0)
--- NOTE | 2018-12-02 10:59 | NUR ---
ASSUMED CARES AT 0700. PT AWAKE, ALERT AND ORIENTED*4. C/O HEADACHE AND RIGHT HIP PAIN 6-04/09, NORCO ADMINISTERED THIS AM PER PT'S REQUEST. BP LOW THIS AM, 90/60, MONITORING. ALL OTHER VITALS REMAINED STABLE. PT CONTINUES TO RECEIVE CALCIUM GLUCONATE VIA IV AT 50ML/HR. PICC LINE ON LEFT UPPER ARM REMAINS INTACT AND PATENT. BRANDI DRESSING ON HIP LEFT REMAINS INTACT,DRIED DRAINAGE ON THE DRESSING NOTED. TOTAL WEIGHT BEARING ON RLE TOLERATED. PT UP WITH 1 PERSON MIN ASSIST, TOLERATED ALL ACTIVITY WELL. DENIES N&V, ATE 75% OF HER MEAL. Q2H POSITION CHANGE. Q1H VISUAL CHECKS. CALL LIGHT WITHIN REACH. FALL PRECAUTIONS IN PLACE
[2018-12-02 11:45] VITALS: BP 94/64
[2018-12-02 19:00] VITALS: BP 93/52
--- NOTE | 2018-12-03 01:56 | NUR ---
PT ALERT AND ORIENTED X 4. AMB TO BR WITH WALKER AND ASSIST X 1 WITHOUT DIFFICULTY. RIGHT HIP BRANDI DRESSING INTACT. LEFT PICC LINE INTACT WITH IV FLUIDS INFUSING. PT C/O PAIN IN RIGHT LEG. TRAMADOL GIVEN ORDERED. PT AWAKE ALL NIGHT TALKING ON HER CELL PHONE. BED ALARM ON FOR SAFETY. PT CHECKED ON HOURLY ROUNDS. PT HAVING URINARY FREQUENCY TONIGHT. DENIES BURNING AND IS VOIDING IN LARGE AMTS.
[2018-12-03 07:45] VITALS: BP 102/59
--- NOTE | 2018-12-03 08:03 | NUR ---
ASSUMED CARE AT 0700. PATIENT IS ALERT AND ORIENTED X4. PATIENT ANGEL'S, KILN CAR UNLOADER ARE EQUAL. LUNGS ARE CLEAR. ABD IS SOFT WITH BSX.4 PATIENT IS UP WITH ASSIST OF 1 STAFF WITH GAIT BELT AND WALKER. PATIENT HAS IV FLUIDS OF CA GLUCONDATE AT 50 CC/HR INFUSING PER LEFT PICC LINE. FALL AND SAFETY PROTOCOLS IN PLACE. DENIES ANY PAIN AT THIS TIME. CONTINUES TO PROGRESS TOWARDS D/C GOALS. PATIENT HAS RIGHT BRANDI DRESSING THAT IS DRY AND INTACT. WILL CONTINUE TO MONITER
--- NOTE | 2018-12-03 17:02 | NUR ---
team conference: met with patient plan dc home on to home with HH RN, PT, OT. Patient with no preference for HH and agreeable to [facility]. [facility] notified. patients dtr 17 year old dtr to stay with patient. Patients will also be checking on her. Verified address and phone number for HH. PCP Dr Knight. Patient with need for JR [facility] sp with [facility] $71.54 patient worried she cannot afford and she has been off work and now struggling to pay bills. will inquire if can assist with vouching for walker.
[2018-12-03 19:28] VITALS: BP 100/70
--- NOTE | 2018-12-04 04:22 | NUR ---
Assumed care of pt at 1915. Pt alert and oriented x4, calm and cooperative. Ambulates to bathroom with standby assist using gait belt and walker. Drsg on right hip intact. Denies nausea or dypsnea. c/o incisional pain, resolved with Tramadol. IV fluids infusing as ordered. Checked on hourly rounds. Fall precautions in place.
[2018-12-04 05:29] LABS: ALBUMIN 1.9 g/dL (3.4-5.0); CREATININE 0.6 mg/dL (0.6-1.0); PHOSPHORUS 2.5 mg/dL (2.5-4.9); POTASSIUM 3.8 mmol/L (3.5-5.1)
[2018-12-04 08:17] VITALS: BP 92/58
[2018-12-04 08:43] LABS: HEMATOCRIT 24.3 % (37.0-47.0); HEMOGLOBIN 7.9 gm/dL (12.0-15.0)
--- NOTE | 2018-12-04 10:29 | NUR ---
Case discussed with dir of cm dept. Will voucher jr villegas per [facility] at dc tomorrow due to the pt's limited financial resources. [facility] can accept for HH services. All parties anticipate dc to home with hh tomorrow.
[2018-12-04 10:30] VITALS: BP 92/58
--- NOTE | 2018-12-04 11:49 | NUR ---
ASSUMED CARE AT 0700. PAITIENT IS ALERT AND ORIENTED X4. PATIENT ANGEL'S. PATIENT HAS RIGHT HIP INCISION R/T SURGICAL REPAIR OF FX. LUNGS ARE CLEAR. ABD IS SOFT WITH BSX4. UP TO THE BATHROOM TO VOID. PATIENT CONTINUES ON BESS.GLUCONATE AT 50 CC/HR. PATIENT HAS LEFT UPPER ARM PICC LINE. PATIENT BRANDI DRESSING D/C'D. [place] BANDAID APPLIED TO RIGHT HIP. FALL AND SAFETY PROTOCOLS IN PLACE. C/O LEFT HIP PAIN. MEDICATED WITH PRN PAIN MED. CONTINUES TO PROGRESS TOWARDS D/C GOALS. WILL CONTINUE TO MONITER
--- NOTE | 2018-12-04 14:18 | NUR ---
DR. GUZMAN RETURNED CALL. ORDERS RECIEVED TO D/C BRANDI DRESSING AND APPLY A LIGHT DRESSING. THE BRANDI INCISION VAC D/C'D ORDERED. THE SITE WAS CLEANED WITH WOUND MACHINE STAMPER AND [place] BANDAID APPLIED. PATIENT TOLERATED PROCEDURE WELL. WILL CONTINUE TO MONITER.
[2018-12-04 19:55] VITALS: BP 92/59
--- NOTE | 2018-12-04 23:50 | NUR ---
PT ALERT AND ORIENTED X 4. IV FLUIDS INFUSING ORDERED. RIGHT HIP DRESSING C/D/I. PT C/O PAIN IN RIGHT LEG AT START OF SHIFT. HAD JUST TAKEN PAIN MED. PT AMB TO BR WITH WALKER AND ASSIST X 1. PT GETTING UP TO BR BY HERSELF. INSTRUCTED PT TO CALL FOR ASSISTANCE WHEN GETTING UP. BED ALARM ON FOR SAFETY. PT CHECKED ON HOURLY ROUNDS.
[2018-12-05 06:32] LABS: ALBUMIN 1.7 g/dL (3.4-5.0); CALCIUM 7.9 mg/dL (8.5-10.1); CREATININE 0.4 mg/dL (0.6-1.0); PHOSPHORUS 2.4 mg/dL (2.5-4.9); POTASSIUM 3.7 mmol/L (3.5-5.1)
[2018-12-05] MEDS ORDERED: COLACE100 MG PO (08:09)
[2018-12-05] MEDS ORDERED: FOLIC ACID1 MG PO (08:09)
[2018-12-05] MEDS ORDERED: IRON325 PO (08:09)
[2018-12-05] MEDS ORDERED: PHOS-NAK PACKE1 EACH PO (08:09)
[2018-12-05] MEDS ORDERED: TYLENOL325 MG PO (08:09)
[2018-12-05] MEDS ORDERED: VITAMIN D50000 UNIT PO (08:09)
[2018-12-05] MEDS ORDERED: CALCITRIOL0.25 MCG PO (08:32)
[2018-12-05 08:43] VITALS: BP 91/51
[2018-12-05 09:43] VITALS: BP 92/58
--- NOTE | 2018-12-05 09:44 | NUR ---
PT. DISCHARGING TODAY TO HOME WITH [facility]. NOTIFIED ADM. LIASON OF DC ORDERS FINALIZED AND THEY WILL NOTIFY PT. OF TIME OF VISITS.
--- NOTE | 2018-12-05 10:16 | NUR ---
ASSUMED CARES AT 0700. PT AWAKE, ALERT AND ORIENTED*4. C/O RIGHT HIP PAIN 04/09, TRAMADOL ADMINISTERED. RIGHT HIP DRESSING REMAINS INTACT, NO DRAINAGE NOTED. CALCIUM GLUCOFAGE DC'D FOR DISCHARGE, PICC TO BE DC'D PRIOR TO DC. LABS DISCUSSED WITH HOSPITALIST AND PT WILL HAVE FOLLOWUP LABS AFTER DC. TOTAL WEIGHT BEARING ON RIGHT HIP TOLERATED. PT CONTINUES TO HAVE BLE EDEMA, EXTREMITIES ELEVATED. PT TEACHING COMPLETED. Q1H VISUAL CHECKS. CALL LIGHT WITHIN REACH. FALL PRECAUTIONS IN PLACE
--- NOTE | 2018-12-05 10:56 | H ---
[facility] [place] [address] HISTORY AND PHYSICAL Name: KELSAE KENNY Room #: 505-P ADM IN M.R.#: [id number] Admission: 11/28/18 ������������������ Attend Phys: Luis Chatman MD Discharge: ������������������ Date of : 78 Report #: [id number] THIS REPORT FOR: //name// CC: Zenaida Mccormack covering for Dr. Luis Chatman. CHIEF COMPLAINT: Weakness. REFERRING DOCTOR: Dr. Max Moran. HISTORY OF PRESENT ILLNESS: The patient is a pleasant 38-year-old right-hand dominant female admitted to [facility] on 11/21/2018 after a fall backwards down stairs at home, striking her right hip against the wall. Her pain progressed over the next few days to the point where she could not bear weight due to severe pain. She was admitted to [facility] and evaluated by Orthopedics. She underwent an IM nailing for a femoral fracture on 11/26/2018. She was placed on a weightbearing as tolerated status post operatively. She has had problems with postoperative anemia, as well as electrolyte abnormalities, which are thought to be due to previous bariatric surgery approximately 10 years ago. She is being followed by Nephrology for the electrolyte abnormalities. SOCIAL HISTORY: Premorbidly, she lived alone in an apartment. She has 5 stairs to enter the apartment. She utilized a single-point cane at home. She was independent previously with her ADLs and IADLs. She drives a car. 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 She works mostly at a desk during the day. She had been on disability prior to her bariatric surgery complications. She does have a daughter and a niece who are able to provide support when she returns home. PAST MEDICAL HISTORY: Scoliosis, fibromyalgia, bariatric surgery in 2004, hypothyroidism. ALLERGIES: No known drug allergies. MEDICATIONS: Reviewed, please see the written documentation of this history and physical. I note that she is receiving Lyrica for pain control, as well as oxycodone. HABITS: Smoking: Nonsmoker. Alcohol use: None. Drug use: None. FAMILY HISTORY: The patient does not report any significant family history related to her current condition. ALLERGIES: No known drug allergies. [facility] [address] [address] HISTORY AND PHYSICAL Name: KELSEA KENNY Room #: 505-P [facility] IN M.R.#: [id number] Admission: 11/28/18 ������������������ Attend Phys: Luis Chatman MD Discharge: ������������������ Date of : 78 Report #: [id number] REVIEW OF SYSTEMS: As above. Specifically, she denies chest pain, shortness of breath, fevers, chills, headaches, bowel or bladder issues. Otherwise, remainder of a 12-point review is negative except for what was stated above. PHYSICAL EXAMINATION: GENERAL: No acute distress, mildly cachectic in appearance. BMI 24.6. RESPIRATORY: Aerating well. CARDIAC: Pulses are 2+ and regular. ABDOMEN: Soft, nontender, nondistended, positive bowel sounds. EXTREMITIES: Calves are nontender. Homans sign is negative bilaterally. No foot drop identified. No calf edema. MUSCULOSKELETAL: Functionally, she is able to ambulate with minimal assistance for 200 feet with a front-wheeled walker. She is transferring to and from a toilet with moderate assistance and she needs minimal assistance for bed mobility. Coordination is fair. She is unsteady with her transfers. NEUROLOGIC/PSYCHIATRIC: Coordination is fair. Muscle stretch reflexes are 1/4 and symmetric. Sensation is intact. She is alert. Her mood is flat. She is cooperative with the exam. She is oriented. No clonus identified at the ankles. SKIN: She has a right hip surgical incision with dressing intact and mild drainage noted. IMPRESSION: Mobility and self-care deficits in a 38-year-old right-hand dominant female secondary to: 1. Status post fall with right femoral neck fracture. 2. Intramedullary nailing procedure, 10/26/2018, with weightbearing as tolerated postoperative status, right lower extremity. 3. Postoperative acute anemia, status post blood transfusion on acute care, with current low hemoglobin on the rehabilitation unit, to be followed by Internal Medicine and Orthopedics. 4. Electrolyte abnormalities, followed by Nephrology. 5. Malabsorption syndrome, followed by Nephrology, status post bariatric surgery in 2004. 6. Scoliosis. 7. Fibromyalgia. 8. Hypothyroidism. PLAN: 1. Admit to the rehabilitation unit for comprehensive therapies. 2. Please see the plan of care, post-admission physician evaluation and admission orders for full details of her rehabilitation care plan. 3. Discussed the rehabilitation program with her and her therapy team and all are in agreement. 4. Dr. Chatman returns to the office on 12/03/2018 and will assume care at that time. [address] [address] HISTORY AND PHYSICAL Name: KELSEA KENNY Room #: 505-P ADM IN M.R.#: [id number] Admission: 11/28/18 ������������������ Attend Phys: Luis Chatman MD Discharge: ������������������ Date of : 78 Report #: [id number] POST-ADMISSION PHYSICIAN EVALUATION: A post-admission physician evaluation has been completed. The patient's preadmission screen was reviewed in its entirety. The current clinical status is supported by the information contained within. The patient is an appropriate candidate to undergo a comprehensive inpatient rehabilitation program, consisting of physical therapy and occupational therapy 3 hours a day at least 5 days a week. Furthermore, nothing has changed since the preadmission screen was completed to suggest that the patient would not be able to tolerate or benefit from this rehabilitation program. It is my opinion that inpatient rehabilitation is a more appropriate venue for her due to her multiple medical needs as described above, requiring comprehensive followup care. She is at risk for clinical complications during participation in this rehabilitation program due to the medical conditions described above. My plan to manage her conditions, which could impact her participation in rehabilitation, is to make the appropriate consultations to follow her during her rehabilitation course. INDIVIDUALIZED OVERALL PLAN OF CARE: Summarization of findings: The patient is receiving inpatient rehabilitation program due to the functional impairments that were described above. Identified interventions, physical, occupational therapies to address mobility and self-care deficits. Physical Medicine and Rehabilitation will provide management of the rehabilitation care plan. Internal Medicine will follow her for multiple medical conditions including her anemia which is severe, electrolyte abnormalities will be followed closely by Nephrology, rehabilitation nursing care 24 hours a day for care needs, social science research assistant for discharge planning and medical equipment needs, dietitian consultation for nutrition. ESTIMATED LENGTH OF STAY: Approximately 10-14 days. ANTICIPATED FUNCTIONAL OUTCOME: Modified independent with mobility and self-care skills. This is a realistic goal based on her previous level of function and her progress thus far with therapies on acute care. ANTICIPATED DISCHARGE DESTINATION: Home with home health assistance. She will have assistance from family as well. MEDICAL PROGNOSIS: Good. She will continue to receive medical care as described above. ANTICIPATED THERAPIES: Physical and occupational therapy 3 hours a day, 5 days a week for an anticipated duration of 10-[address] [address] HISTORY AND PHYSICAL Name: KELSEA KENNY Room #: 505-P ADM IN M.R.#: [id number] Admission: 11/28/18 ������������������ Attend Phys: Luis Chatman MD Discharge: ������������������ Date of : 78 Report #: [id number] SUMMARIZATION OF TREATMENT PLAN: She will continue to receive an inpatient rehabilitation program, as outlined above, in an effort to improve her overall function and return home at a modified independent level within 10-14 days. ��������������������������������������������� <ELECTRONICALLY SIGNED> ���������������������������������������� By: Luis Chatman MD ��������������������������������������������� 12/05/18 1056 0912 1024 Barrera Mccormack DO /nt
[2018-12-05 11:07] VITALS: BP 92/58
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
== END 2018-12-05 12:50 | disposition home health service (06) | DRG 535 ==
PROVIDERS: Hospitalist; Nurse Practitioner; Nurse Practitioner Family; ADMIT Physical Medicine & Rehabilitation
DX: S72.001A Fracture of unspecified part of neck of right femur, initial encounter for closed fracture (principal); E43 Unspecified severe protein-calorie malnutrition; D62 Acute posthemorrhagic anemia; K90.9 Intestinal malabsorption, unspecified; Z60.2 Problems related to living alone; M41.9 Scoliosis, unspecified; M79.7 Fibromyalgia; E03.9 Hypothyroidism, unspecified; F34.1 Dysthymic disorder; F43.10 Post-traumatic stress disorder, unspecified; R53.81 Other malaise; E83.51 Hypocalcemia; W10.8XXA Fall (on) (from) other stairs and steps, initial encounter; F32.9 Major depressive disorder, single episode, unspecified; E87.8 Other disorders of electrolyte and fluid balance, not elsewhere classified; M54.5 Low back pain; I95.9 Hypotension, unspecified; E83.39 Other disorders of phosphorus metabolism; G89.29 Other chronic pain; Z90.49 Acquired absence of other specified parts of digestive tract; Z87.891 Personal history of nicotine dependence; Z98.84 Bariatric surgery status; Y93.89 Activity, other specified; Y92.098 Other place in other non-institutional residence as the place of occurrence of the external cause; Y99.8 Other external cause status; Z68.24 Body mass index [BMI] 24.0-24.9, adult
CPT/HCPCS: 10112

== ENCOUNTER 2019-02-28 16:17 | Emergency (ER) | payer OTHER ==
[~2019-02-28] VITALS: Ht 154.9 cm; Wt 59.0 kg
[~2019-02-28 16:17] MED LIST changes: +CALCITRIOL0.25 MCG PO; +COLACE100 MG PO; +FOLIC ACID1 MG PO; +IRON325 PO; +PHOS-NAK PACKE1 EACH PO; +TUMS PO; +TYLENOL325 MG PO; +VITAMIN D50000 UNIT PO
[2019-02-28] MEDS ORDERED: NORCO 5-325 TA1 EACH PO (18:10)
[2019-02-28 18:29] VITALS: BP 108/56
== END 2019-02-28 18:29 | disposition home or self-care (01) ==
LOC: ER 16:17
DX: S62.291A Other fracture of first metacarpal bone, right hand, initial encounter for closed fracture (principal); M41.9 Scoliosis, unspecified; M79.7 Fibromyalgia; E03.9 Hypothyroidism, unspecified; M81.0 Age-related osteoporosis without current pathological fracture; Z90.49 Acquired absence of other specified parts of digestive tract; W22.8XXA Striking against or struck by other objects, initial encounter; Y92.89 Other specified places as the place of occurrence of the external cause; Y93.89 Activity, other specified; Y99.8 Other external cause status

== ENCOUNTER → 2019-09-08 | Outpatient (CLI) | payer OTHER ==
[~2019-09-08] VITALS: Ht 154.9 cm; Wt 62.6 kg
[~2019-09-08] MED LIST changes: +LYRICA200 MG PO; +NORCO 5-325 TA1 EACH PO; +VITAMIN A8000 UNI1 PO; +ZENPEP DR 25,01 EAC1 PO
--- NOTE | 2019-09-08 15:21 | EKG ---
[address] [address] ELECTROCARDIOGRAM REPORT Name: KENNYKELSEA Room #: REG HARESH Snell#: [id number] Admission: 09/08/19 Attend Phys: Jose Luis To DO Discharge: Date of : 78 Report #: [id number] THIS REPORT FOR: //name// [facility] Test Date: 2019-09-08 Test Time: 11:02:29 Pat Name: KELSEA KENNY Department: Room: Gender: F Popcorn Attendant: PIPER : 1980 Requested By: Pamella Acosta Order Number: [id number] MD: Cory Pillai Measurements Intervals [place] Rate: 47 P: 59 KS: 150 QRS: 50 QRSD: 106 T: 32 QT: 495 QTc: 438 Interpretive Statements Sinus bradycardia No previous ECG available for comparison Electronically Signed On 09-08-2019 15:21:07 DEPARTMENTAL SECRETARY by Cory Pillai [email or web address] <ELECTRONICALLY SIGNED> By: Cory Pillai MD 09/08/19 1521 1102 1102 Cory Pillai MD /CARROL
== END | disposition home or self-care (01) ==
LOC: GI 07:28
DX: R10.84 Generalized abdominal pain (principal); R10.13 Epigastric pain; R11.0 Nausea; D64.9 Anemia, unspecified; E03.9 Hypothyroidism, unspecified; F32.9 Major depressive disorder, single episode, unspecified; M79.7 Fibromyalgia; Z98.890 Other specified postprocedural states; Z87.19 Personal history of other diseases of the digestive system; Z98.0 Intestinal bypass and anastomosis status; Z98.84 Bariatric surgery status; Z79.899 Other long term (current) drug therapy; Z90.49 Acquired absence of other specified parts of digestive tract; Z96.641 Presence of right artificial hip joint; Z87.891 Personal history of nicotine dependence
CPT/HCPCS: 62110; 62900

== ENCOUNTER → 2019-10-13 | Outpatient (CLI) | payer OTHER | END | disposition home or self-care (01) | LOC: GI 07:41 | DX: D50.9 Iron deficiency anemia, unspecified (principal); K63.89 Other specified diseases of intestine; Z98.890 Other specified postprocedural states; Z79.899 Other long term (current) drug therapy ==

== ENCOUNTER 2019-11-20 17:03 | Emergency (ER) | payer OTHER ==
[~2019-11-20] VITALS: Ht 154.9 cm; Wt 61.2 kg
[2019-11-20] MEDS ORDERED: ADDERALL 5 MG TA5 M1 PO (17:09)
[2019-11-20] MEDS ORDERED: BRINTELLIX10 MG PO (17:09)
[2019-11-20] MEDS ORDERED: NORCO 5-325 TA1 EAC1 PO (20:04)
[2019-11-20 20:20] VITALS: BP 124/67
== END 2019-11-20 20:20 | disposition home or self-care (01) ==
LOC: ER 17:03
DX: M79.671 Pain in right foot (principal); M79.7 Fibromyalgia; E03.9 Hypothyroidism, unspecified; F32.9 Major depressive disorder, single episode, unspecified; F12.90 Cannabis use, unspecified, uncomplicated

== ENCOUNTER 2020-02-06 10:24 | Inpatient (IN) | payer OTHER ==
[~2020-02-06] VITALS: Ht 154.9 cm; Wt 59.9 kg
--- NOTE | ~2020-02-06 | O ---
[facility] [place] [address] OPERATIVE REPORT Name: KELSEA KENNY Room #: 442- ADM IN M.R.#: [id number] Admission: 02/06/20 Attend Phys: Lia Pickens Discharge: Date of : 78 Report #: [id number] THIS REPORT FOR: cc: Zenaida Harmon,Jose Luis Padilla MD ~ CC: Zenaida Pickens DATE OF SERVICE: 02/06/2020 PREOPERATIVE DIAGNOSIS: Left femoral neck stress fracture. POSTOPERATIVE DIAGNOSIS: Left femoral neck stress fracture. PROCEDURE: Treatment of left femoral neck stress fracture with IM nail. SURGEON: Jose Luis Blackmon M.D. ACTUARIAL TECHNICIAN: Yaneth Doll PA-C. ANESTHESIA: LMA. INDICATIONS FOR ACTUARIAL TECHNICIAN: Throughout the case, extensive retraction and manipulation of the hip was required. This was afforded to me by my assistant professor of marine biology. IMPLANTS: Ag and Nephew size 13 short InterTan nail with a 95/90 lag screw and compression screw and a size 35 distal locking screw. ESTIMATED BLOOD LOSS: 50 mL. COMPLICATIONS: None. SPECIMENS: None. CONDITION UPON LEAVING THE OPERATING ROOM: Stable. INDICATIONS FOR PROCEDURE: The patient is a 39-year-old female who has had a left-sided hip pain for several weeks. She actually had been admitted previously to the hospital for right tibia fracture that was previously treated with an IM nail. She has a significant history of severe osteoporosis secondary to calcium metabolic disease. She had an MRI scan of her left hip showing her to have a femoral neck stress fracture. After discussion with her, she elected for treatment with an IM nail. DESCRIPTION OF PROCEDURE: Risks, benefits, alternatives, complications were [facility] [address] [place] [address] OPERATIVE REPORT Name: KELSEA KENNY Room #: 442-P [facility] IN M.R.#: [id number] Admission: 02/06/20 Attend Phys: Lia Pickens Discharge: Date of : 78 Report #: [id number] discussed in detail with the patient including but not limited to risk of anesthesia, risk of damage to nerves, arteries, blood vessels, risk for infection, bleeding, risk for continued hip pain and need for reoperation. Informed consent was obtained from the patient. Left hip was appropriately marked in the preoperative holding area. IV Ancef was given for preoperative antibiotics. She was brought to the operating room and placed in the supine position on the operating room table. LMA anesthesia was induced without complication. She was placed in the [place] table. Left lower extremity was placed in slight traction. Right lower extremity was scissored. Fluoroscopic imaging was brought in to verify adequate images could be obtained as was the case. Left hip was then prepped and draped in normal sterile fashion. Timeout was performed properly identifying the patient and procedure as well as the instrumentation and implants. All in the operating room were in agreement. An incision proximal to the greater trochanter in line with the femur was made with a 10 blade through the skin and fascia. Threaded tip guidewire was placed on the tip of the greater trochanter and taken down to the level of the lesser trochanter and verified to be in good starting portal position under AP and lateral imaging. Entry portal was then used to ream the entry portal and a 13 short InterTan nail was placed down the femoral canal and seated. The guide for the compression and lag screw was then placed on the lateral cortex of the femur and threaded tip guidewire was taken up into the femoral head and verified to be in the center-center position. A size 95 lag screw and a 90 compression screw were then placed using standard technique and verified to be in good position. One distal locking screw in the dynamic slot was then placed under fluoroscopic imaging. This was 35 mm in length. After this, the outrigger was removed. Final fluoroscopic images were taken to verify adequate placement of hardware as was the case. The wounds were thoroughly irrigated with normal saline and closed with 2-0 Vicryl, skin staple. Soft dressing was applied. The patient went to the recovery room under care of anesthesia postoperatively. By: 1208 1235 Jose Luis Blackmon MD /santy
[~2020-02-06 10:24] MED LIST changes: +ADDERALL 5 MG TA5 M1 PO; +NORCO 5-325 TA1 EAC1 PO
[2020-02-06 10:28] VITALS: BP 130/80
--- NOTE | 2020-02-06 11:45 | NUR ---
PER EMS-4 ATTEMPTS MADE TO START AN IV. THE LINE IN PLACE DOES NOT WORK. UNSUCCESSFUL IN AN ANOTHER IV ATTEMPT. IV TEAM CONTACTED AND CHARGE HENRY
[2020-02-06 12:35] LABS: ABSOLUTE NEUTROPHILS 4.6 thou/uL (1.4-8.2); BASOPHILS 0.1 % (0.0-2.0); EOSINOPHILS 0.2 % (0.0-3.0); HEMATOCRIT 26.3 % (37.0-47.0); HEMOGLOBIN 8.1 gm/dL (12.0-15.0); LYMPHOCYTES 23.8 % (24.0-44.0); MCH 23.4 pg (26.0-34.0); MCV 75.6 fL (80.0-100.0); MONOCYTES 7.2 % (1.0-8.0); PLATELET COUNT 190 thou/uL (150-400); POLYS 68.7 % (36.0-66.0); RBC 3.48 mil/uL (4.20-5.00); RDW 18.5 % (10.5-14.5); WBC 6.7 thou/uL (4.0-11.0)
[2020-02-06 12:41] LABS: CALCIUM 7.5 mg/dL (8.5-10.1); CREATININE 0.7 mg/dL (0.6-1.0); POTASSIUM 3.6 mmol/L (3.5-5.1)
[2020-02-06 15:35] VITALS: BP 119/70
[2020-02-06 16:38] VITALS: BP 127/73
[2020-02-06 17:45] VITALS: BP 126/67
--- NOTE | 2020-02-06 18:25 | NUR ---
Pt came to unit from ED approx 1700. A&ox4. C/o pain in RLE. Prn pain meds administered. IVF infusing. Cast in place. Admission completed. Possible surgery in the am. Fall precautions in place. Will continue to monitor.
[2020-02-06 20:15] VITALS: BP 106/62
[2020-02-07] VITALS (8 sets, daily range): BP systolic 111–140; BP diastolic 73–88
--- NOTE | 2020-02-07 00:09 | NUR ---
PT AOX4. PT REPORTING PAIN IN RLE, EXACERBATED BY TOUCH AND MOVEMENT. PT TAKING PRN PO NORCO Q4HR. PT REPORTS MEDICATION INEFFECTIVE PAIN REMAINS UNCHANGED. PT ALSO REPORTS ITCHING SENSATION. NOTIFIED GLASS FINISHER PROVIDER, ORDERS PLACED FOR PRN IV FENTANYL Q4HR, PRN PO NORCO Q4HR 2TABS, AND PRN PO BENADRYL Q8HR. SENSATION INTACT TO RLE, CAPILLARY REFILL SLUGGISH TO RIGHT TOES. RLE REMAINS IN CAST, ELEVATED IN BED. PT TOLERATING PO INTAKE OF FLUIDS AND REGULAR DIET, NPO AT MIDNIGHT. FREQUENT REPOSITIONING ENCOURAGED, PT REFUSING DUE TO REPORTS OF PAIN WITH MOVEMENT AND COMFORT WITH IMMOBILIZATION. ENCOURAGED PT TO NOTIFY STAFF FOR ALL NEEDS. CALL LIGHT WITHIN REACH, BED IN LOWEST POSITION, BED ALARM ON. WILL CONTINUE TO MONITOR.
--- NOTE | 2020-02-07 10:21 | HC ---
[facility] [place] [address] CONSULTATION Name: KELSEA KENNY Room #: 442- ADM IN M.R.#: [id number] Admission: 02/06/20 Attend Phys: Lia Pickens Discharge: Date of : 78 Report #: [id number] THIS REPORT FOR: cc: Zenaida Harmon,Jose Luis Padilla MD ~ CC: Zenaida Pickens DATE OF SERVICE: 02/07/2020 REASON FOR CONSULTATION: Right tibia fracture. HISTORY OF PRESENT ILLNESS: The patient is a 39-year-old female who is well known to me. She evidently yesterday was in her kitchen and slipped and fell at her right leg go out from underneath her. She was unable to stand afterwards and had instability of her right leg. She was brought to the Emergency Room, found to have a proximal third tib-fib fracture. She has a history of a bariatric surgery in the past that resulted in significant dysregulation of calcium homeostasis. She actually has been treated by me in the past for a stress fracture in her right femoral neck, treated with an IM nail. PAST MEDICAL HISTORY: Previous bariatric surgery and right femoral neck stress fracture treated with an IM nail; hypocalcemia, chronic pain, sciatica, scoliosis. ALLERGIES: No known drug allergies. CURRENT MEDICATIONS: Have been reviewed and on the chart. PHYSICAL EXAMINATION: GENERAL: This is a well-developed, well-nourished female in no acute distress. She is alert and oriented, pleasant, cooperative with exam. EXTREMITIES: Examination of right lower extremity shows her to have a long leg splint in place. She is able to wiggle her toes. She has full sensation to light touch and brisk capillary refill. X-RAY EXAMINATION: AP and lateral right tib-fib shows to have a proximal third tib-fib fracture with mild valgus angulation. She has significant osteopenia noted. X-ray of her pelvis shows her to have a short IM nail on the right without signs of abnormality. Left hip shows no fracture. ASSESSMENT: Right proximal third tibia-fibula fracture. PLAN: Diagnosis and treatment were discussed with her today. We will plan for treating with an IM nail. We did discuss the fact that she has hypocalcemia and [address] [address] CONSULTATION Name: KELSEA KENNY Room #: 442- ADM IN M.R.#: [id number] Admission: 02/06/20 Attend Phys: Lia Pickens Discharge: Date of : 78 Report #: [id number] this needs to be managed appropriately by either her dough mixer helper or an brim and crown presser. This will likely be done on an outpatient basis. Also, she has noted left hip pain that has been there for 2-3 weeks. This may need to be worked up with an MRI scan depending on how she does postoperatively with physical therapy. We will plan for surgery on her tibia later this morning. Thank you for allowing us to participate in the care of the patient. <ELECTRONICALLY SIGNED> By: Jose Luis Blackmon MD 02/07/20 1021 [id number] Jose Luis Blacmkon MD /nt
[2020-02-07 12:48] LABS: % SATURATION 4 % (20-39); IRON 15 ug/dL (50-170); TIBC 368 ug/dL (250-450)
--- NOTE | 2020-02-07 18:22 | NUR ---
Assumed care of pt at 0700. Pt a&ox4. Surgery on right lower extremity this am. C/o pain. Prn pain meds administered. Dressing c/d/i. Post-op boot in place by physical therapy. Covarrubias catheter in place. IVF infusing. Call light within reach. Will continue to monitor.
[2020-02-08 04:19] LABS: MCH 23.6 pg (26.0-34.0); MCHC 31.3 g/dL (28.0-37.0); MCV 75.3 fL (80.0-100.0); RBC 2.4 mil/uL (4.20-5.00); RDW 17.9 % (10.5-14.5); WBC 7.5 thou/uL (4.0-11.0)
[2020-02-08 04:25] LABS: HEMATOCRIT 18.1 % (37.0-47.0); HEMOGLOBIN 5.7 gm/dL (12.0-15.0)
[2020-02-08 04:30] VITALS: BP 118/69
[2020-02-08 04:39] LABS: CALCIUM 7.1 mg/dL (8.5-10.1); CREATININE 0.7 mg/dL (0.6-1.0); PHOSPHORUS 1.5 mg/dL (2.5-4.9)
--- NOTE | 2020-02-08 04:49 | NUR ---
ASSESSMENT COMPLETED. PAIN MANAGEMENT ACHIEVED WITH NORCO. PT DENEIS NAUSEA OR VOMITING. MANRIQUEZ TO D/D WITH GOOD U/O. IVF AND ABTS INFUSED. AFEBRILE. RLE WITH SENSATION, MOVEMENT AND CIRCULATION INTACT. RLE ELEVATED. HGB AND HCT CRITICALLY LOW THIS MORNING. ORDER TO TRANSFUSE PUT IN.PT HAS NO SIGNS OF BLEEDING.
[2020-02-08 06:55] VITALS: BP 97/64; BP 98/62; BP 99/56; BP 99/60
[2020-02-08 07:27] VITALS: BP 100/57
[2020-02-08 13:04] LABS: HEMOGLOBIN 6.9 gm/dL (12.0-15.0)
[2020-02-08 13:05] LABS: HEMATOCRIT 21.9 % (37.0-47.0)
--- NOTE | 2020-02-08 13:52 | HC ---
[facility] [place] [address] CONSULTATION Name: KELSEA KENNY Room #: 442-P ADM IN M.R.#: [id number] Admission: 02/06/20 Attend Phys: Lia Pickens Discharge: Date of : 78 Report #: [id number] THIS REPORT FOR: cc: Zenaida Harmon,Bolivar Musa MD ~ CC: Zenaida Pickens DATE OF SERVICE: 02/07/2020 ENDOCRINE CONSULTATION NOTE CONSULTING PHYSICIAN: Dr. Jose Luis Blackmon. REASON FOR CONSULTATION: Fragility fracture, osteoporosis. HISTORY OF PRESENT ILLNESS: This is a 39-year-old female patient whose medical background is significant for a distant gastric bypass surgery over 15 years ago with ensuing chronic vitamin D deficiency, hypothyroidism, as well as malabsorptive difficulties. Also, the patient's course has been remarkable for right hip fracture and multiple rib fractures, requiring surgical repair for her right hip fracture. The patient presented yesterday with the issue of right leg pain following a fall that she had earlier yesterday as she had tripped over a rug at her home. On further investigation, the patient was found to have tibiofibular fracture on the right lower extremity and was admitted for further care and monitoring. The patient underwent a surgical repair of the right proximal one-third tibiofibular fracture earlier today. The patient notes that she has dealt with vitamin D deficiency for several years and that she is currently on an [id number] supplement. She could not recall the dose of the supplement. Also, she was diagnosed as having osteoporosis and recalls having been evaluated with multiple bone density scans in the past and having been treated with Prolia for about 2 years. She has not taken it for about 2 years due to the lack of insurance coverage at that time. Also, the patient is known to have hypothyroidism and is currently on levothyroxine 100 mcg daily, which was raised from 75 mcg daily 3 months ago. She tolerates this dose well and denies issues with palpitations, tremors or body weight loss. The patient is not currently on vitamin B12 or iron supplements. REVIEW OF SYSTEMS: CONSTITUTIONAL: Fatigue, tiredness, but no weight changes, fever or chills. [address] [address] CONSULTATION Name: KELSEA KENNY Room #: 442-P [facility] IN M.R.#: [id number] Admission: 02/06/20 Attend Phys: Lia Pickens Discharge: Date of : 78 Report #: [id number] HEENT: Negative for sore throat, sinus pain or ear drainage. PULMONARY: Negative for shortness of breath, cough or hemoptysis. CARDIAC: Negative for chest pain, palpitations, syncope or presyncope. GASTROINTESTINAL: Negative for abdominal pain, nausea, vomiting or changes in bowel movement frequency. NEUROLOGY: Negative for loss of consciousness or seizure activity. MUSCULOSKELETAL: Noted for baseline issues with fibromyalgia. PSYCHIATRIC: Baseline issues with depression, controlled on current medical therapy. Otherwise, her review of systems noncontributory other than those mentioned in HPI. PAST MEDICAL HISTORY: 1. Hypothyroidism. 2. Fibromyalgia. 3. Depression. 4. Gastric bypass surgery in 2004. She managed to lose more than 220 pounds since then. 5. 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 6. Anemia. PAST SURGICAL HISTORY: Gastric bypass, bariatric surgery, hernia repair and cholecystectomy. OUTPATIENT MEDICATIONS: Include Adderall 5 mg tablet, Trintellix 10 mg daily, Synthroid 100 mcg daily. Lipase, protease and amylase (Zenpep) 25,000 unit capsules with each meal and Lyrica 200 mg b.i.d. ALLERGIES: There are no known drug allergies. FAMILY HISTORY: Noncontributory. SOCIAL HISTORY: The patient smokes sporadically. Denies use of alcohol or illicit drugs. PHYSICAL EXAMINATION: GENERAL: -[place] female patient who is not in apparent pain or distress. VITAL SIGNS: Blood pressure is 129/84 mmHg, heart rate is 77 beats per minute, respirations 12 per minute and temperature 37.3 degrees Celsius. CONSTITUTIONAL: The patient is sitting upright in bed, appears relatively comfortable, not in apparent distress. HEENT: Anicteric sclerae. Intact extraocular motions. NECK: Supple, without JVD, carotid bruits or lymphadenopathy. I do not appreciate thyromegaly. CHEST: Clear to auscultation with scattered rales. No wheeze or crackles. HEART: Regular rate and rhythm without murmurs or gallops. [facility] [address] [place] [address] CONSULTATION Name: KELSEA KENNY Room #: 442-P [facility] IN M.R.#: [id number] Admission: 02/06/20 Attend Phys: Lia Pickens Discharge: Date of : 78 Report #: [id number] ABDOMEN: Soft, lax. No guarding. Active bowel sounds. EXTREMITIES: Lower extremity exam; right lower extremity is in surgical dressing and left lower extremity without edema. NEUROLOGIC: Awake, alert and oriented to time, place and person. The remainder of her examination is nonfocal. PSYCHIATRIC: Pleasant, interactive. Normal mood and affect. LABORATORY RESULTS: Sodium 135, potassium 3.6, chloride 105, CO2 of 23, anion gap 7, BUN 10, creatinine 0.7, AST 84, total bilirubin 0.5, calcium 7.5, phosphorus 2.4, magnesium 2.0, alkaline phosphatase 307, ALT 48, total protein 7.4, albumin 1.7, EGFR 112, iron 15. White blood count 6.7, hemoglobin 8.1, hematocrit 26.3, platelets 190. TSH in November 2018 was 3.192. Vitamin B12 on November 2018 was 2370. PTH in November 2018 was 708. Ionized calcium in November 2018 was low at 3.5. Vitamin D was undetectable at the same time. ASSESSMENT AND PLAN: 1. Osteoporosis. As noted in HPI, the patient has had multiple fractures in the past few years including major fractures such as her right hip fracture and presents again with a minor trauma tibiofibular fracture involving her right lower extremity. Moreover, the patient's history is noted for diagnosed osteoporosis that was treated for nearly 2 years with Prolia, but not in the past 2 years due to insurance lapses. Collectively, this places the patient at high risk for future fractures. She was counseled about this outlook at length and she seems to understand this fully. I would definitely like to obtain a bone density scan for baseline establishment in the outpatient setting after the patient has stabilized and would try to obtain her previous bone density scans that she believes had gotten as recently as 2-3 years ago. The patient will need a secondary workup for secondary causes of osteoporosis including a vitamin D, PTH, thyroid function studies, protein electrophoresis to be obtained during this hospital stay as will be outlined below. 2. Vitamin D deficiency. The patient is a candidate for severe vitamin D malabsorption given her history of gastric bypass. She has evidence of an undetectable vitamin D and severe secondary hyperparathyroidism over a year ago. I would like to obtain a current vitamin D, PTH and ionized calcium levels to further characterize her current situation. I am fairly certain that she will prove to still have significant vitamin D deficiency. I counseled the patient about the need to reverse this abnormality and to aggressive vitamin D replacement therapy geared towards reversing this issue. Often times, patients in this position with a prior background of gastric bypass surgery and vitamin D malabsorption might require high dose ergocalciferol therapy multiple times a week and occasionally daily and such that the patient will be guided by her vitamin D levels. 3. Hyperparathyroidism. Again, the patient had severe hyperparathyroidism, secondary to vitamin D deficiency, documented over a year ago. I will obtain a current workup in this regard, but it is worth noting that her alkaline phosphatase is elevated in a manner to suggest a hypermetabolic bone state [address] [address] CONSULTATION Name: KELSEA KENNY Room #: 442-P [facility] IN M.R.#: [id number] Admission: 02/06/20 Attend Phys: Lia Pickens Discharge: Date of : 78 Report #: [id number] consistent with likely hyperparathyroidism. If documented again, this solution would be aggressive and level titrated high dose vitamin D therapy with the intent of normalizing her PTH in the future. 4. Hypothyroidism. The patient has longstanding hypothyroidism and is currently maintained on levothyroxine therapy, which was titrated as recently as 3 months ago. I will obtain TSH and free T4 levels to ensure the adequacy of her current dose. 5. Hypocalcemia. The patient has a low total calcium that will probably fall within normal limits when corrected for hypoalbuminemia. However, the patient had a documentation of significantly low ionized calcium levels over a year ago. I would like to assess this aspect further with an ionized calcium level as well. I certainly appreciate this consultation by Dr. Blackmon. <ELECTRONICALLY SIGNED> By: Bolivar Maynard MD 02/08/20 1352 [id number] Bolivar Maynard MD /nt
--- NOTE | 2020-02-08 14:45 | NUR ---
Assumed care of pt at 0700. Pt a&ox4. Pain controlled with prn pain meds. 1 unti of blood infused. H&H rechecked - 6.9. 1 more unit of blood ordered. Dressing c/d/i. IVF infusing. GI consulted. Pt calls appropriately. Will continue to monitor.
[2020-02-08 15:05] VITALS: BP 104/57
[2020-02-08 15:08] LABS: FOLIC ACID 9.6 ng/mL (8.6-58.9)
[2020-02-08 16:43] VITALS: BP 109/60; BP 95/64; BP 99/60
[2020-02-08 20:15] VITALS: BP 99/60
[2020-02-08 21:30] LABS: HEMOGLOBIN 7.5 gm/dL (12.0-15.0)
[2020-02-09 05:30] VITALS: BP 121/74
[2020-02-09 06:07] LABS: CALCIUM IONIZED* 4.5 mg/dL (4.5-5.6)
--- NOTE | 2020-02-09 06:55 | NUR ---
PT UP TO THE BSC,SOFT FORMED LOOSE BM NOTED THIS AM,STOOL SAMPLE SENT TO THE LAB.PT C/O PAIN ON HER RLE,MANAGED WITH MED.PT'S HGB UP TO 7.5 POST SECOND UNIT OF BLOOD TRANSFUSION.DECLAN OSEGUERA THIS AM.CAM BOOY ON HER R LEG.IVF ORDERED.PT RESTING ON HER BED AT THIS TIME.FALL PRECAUTIONS IN PLACE,CALL LIGHT WITHIN REACH.
--- NOTE | 2020-02-09 08:15 | O ---
[facility] [place] [address] OPERATIVE REPORT Name: KELSEA KENNY Room #: 442- ADM IN M.R.#: [id number] Admission: 02/06/20 Attend Phys: Lia Pickens Discharge: Date of : 78 Report #: [id number] THIS REPORT FOR: cc: Zenaida Harmon,Jose Luis Padilla MD ~ CC: Zenaida Pickens DATE OF SERVICE: 02/07/2020 PREOPERATIVE DIAGNOSIS: Right proximal third tibia-fibula fracture. POSTOPERATIVE DIAGNOSIS: Right proximal third tibia-fibula fracture. PROCEDURE: Treatment of right tibia fracture with an IM nail. SURGEON: Jose Luis Blackmon MD LIVESTOCK CARETAKER: Yaneth Doll PA-C. INDICATIONS FOR LIVESTOCK CARETAKER: Throughout the case, extensive retraction and manipulation of the leg was required as well as reduction of the fracture. This was afforded to me by my family medicine physician assistant. ANESTHESIA: LMA. IMPLANTS: Ag and Nephew size 13 x 33 [place] nail with 1 proximal third blocking screw, 3 proximal locking screws and 2 distal locking screws, all of appropriate length. ESTIMATED BLOOD LOSS: 150 mL. COMPLICATIONS: None. SPECIMENS: None. CONDITION UPON LEAVING THE OPERATING ROOM: Stable. INDICATIONS FOR PROCEDURE: The patient is a 39-year-old female who has significant osteoporosis secondary to dysregulation of calcium homeostasis. She was in her home and twisted her leg and felt break of her tibia and fell to the ground. She was evaluated and found to have a proximal one-third tib-fib fracture and after discussion with her, she elected for treatment with an IM nail. [facility] [address] [place] [address] OPERATIVE REPORT Name: KELSEA KENNY Room #: 442-P ADM IN M.R.#: [id number] Admission: 02/06/20 Attend Phys: Lia Pickens Discharge: Date of : 78 Report #: [id number] DESCRIPTION OF PROCEDURE: Risks, benefits, alternatives, complications were discussed in detail with the patient including but not limited to risk of anesthesia, risk of damage to nerves, arteries, blood vessels, risk for infection, bleeding, risk for continued leg pain, malunion, nonunion and need for reoperation. Informed consent was obtained from the patient. Right tibia was appropriately marked in the preoperative holding area. IV Ancef was given for preoperative antibiotics. She was brought to the operating room and placed in supine position on operating room table. LMA anesthesia was induced without complication. Right lower extremity was prepped and draped in normal sterile fashion. Timeout was performed properly identifying the patient and procedure as well as the instrumentation. All in the operating room were in agreement. An incision just along the medial border of the patellar tendon was made with 10 blade through the skin. Dissection was taken down sharply to the fascia. Deep incision medial to the patellar tendon was made with #10 blade. Threaded tip guidewire was placed on the proximal tibia under fluoroscopic imaging and verified to be in line with the lateral tibial spine and this was taken into the bone. She had very soft bone. This was actually done by hand and not even with the drill. Entry portal reamer was used to ream the entry portal and the reduction tool was then placed across the fracture site under fluoroscopic imaging. The ball tip guidewire was then taken down to the level of the physeal scar at the distal tibia. This was verified to be in good position under AP and lateral imaging. The tibia was then sequentially reamed and as we were reaming, it was felt that the fracture wanted to go into valgus given its proximal third nature. A blocking screw was then placed from anterior to posterior just lateral to the guidewire in order to better align the fracture. The tibia was then again sequentially reamed up to a size 14. Tibial nail was measured and found to be a 33. A size 13 x 33 tibial nail was then placed down across the fracture site and seated at the physeal scar of the distal tibia. This was verified to have good fracture reduction and length. Three proximal locking screws were then placed using the outrigger. Two distal locking screws from medial to lateral placed using perfect shingle springs technique. All screws were verified to have adequate length under fluoroscopic imaging. After this, final fluoroscopic images were taken to verify adequate fracture reduction and placement of hardware. Wounds were thoroughly irrigated with normal saline. The parapatellar arthrotomy was closed with 0 Vicryl, skin was closed with 2-0 Vicryl and skin staple. Soft dressings were applied as well as a Cam boot. The patient tolerated this procedure well and went to the recovery room under care of anesthesia postoperatively. <ELECTRONICALLY SIGNED> By: Jose Luis Blackmon MD 02/09/20 0815 [id number] [id number] Jose Luis Blackmon MD /santy
[2020-02-09 08:17] VITALS: BP 125/71
[2020-02-09] MEDS ORDERED: HYDROCODON-ACE1 EAC7 PO (12:11)
[2020-02-09] MEDS ORDERED: MIRALAX17 GM PO (12:11)
--- NOTE | 2020-02-09 13:01 | NUR ---
chart review, cm visited with pt via phone call. intro to cm and dcp. pt is able to make her needs know, she reported " live [place] home with daughter, her boyfriend and grandbaby. i dont ask my daughter for help with new baby, that would be to much. have 1 big step into the mud room. if need rehab i will do it, think it would be ok for rehab. been up there in the past. ann[facility]ie in past then went to outpt therapy [facility]. independent when feeling ok. i need to have time to rest and have been working from home with the pandemic but i will not be getting paid. still need to be able to pay rent"/anna. education on [facility]. referral to be sent to [facility] per pt request. will cont following as needed for dc needs.
[2020-02-09 17:08] LABS: GLOBULIN TOTAL 3.4 g/dL (2.2-3.9); M-SPIKE Not Observed g/dL (Not Observed)
--- NOTE | 2020-02-09 19:36 | NUR ---
VSS-AFEBRILE. LUNGS CLEAR-ROOM AIR. PAIN WELL CONTROLLED WITH IV AND PO PAIN MEDICATION. OOB WITH STAFF AND PHYSICAL THERAPY TO USE COMMODE. TWO LARGE, SOFT, YELLOW STOOLS EARLY IN SHIFT. GOOD SENSATION WITH TOES ON RIGHT FOOT, ABLE TO MOVE EASILY. CALLS APPROPRIATELY FOR ANY NEEDED ASSISTANCE.
[2020-02-09 20:17] VITALS: BP 92/64
[2020-02-10 00:23] VITALS: BP 96/62
--- NOTE | 2020-02-10 00:36 | NUR ---
ASSUMED PT CARE AT 1900. PT REPORTS PAIN 04/09, PAIN MEDS GIVEN. LOW BP AIMEET - DISASSEMBLER PRODUCT CALLED, RECHECKED MANUALLY, DISASSEMBLER PRODUCT STATES TO CONTINUE TO MONITOR IT AND NO ORDERS GIVEN AT THIS TIME. UP TO BEDSIDE COMMODE WITH ASSIST. LLE DRESSING C/D/I WITH STRONG PULSES. PT REFUSED STOOL SOFTENER DUE TO LOOSE STOOLS TODAY. FLUIDS INFUSING PER ORDER. NO COMPLAINTS AT THIS TIME.
[2020-02-10 04:35] VITALS: BP 105/66
[2020-02-10 05:08] LABS: 25-HYDROXY TOTAL 9.1 ng/mL (30.0-100.0)
[2020-02-10 08:00] VITALS: BP 90/62
[2020-02-10 10:40] LABS: MCV 78.4 fL (80.0-100.0); RBC 2.8 mil/uL (4.20-5.00); RDW 20.4 % (10.5-14.5); WBC 6.3 thou/uL (4.0-11.0)
--- NOTE | 2020-02-10 11:25 | NUR ---
Patient rec second covid test and negative results. Notified [facility]. THey are accepting of patient. Notified patient and RN of dc today. DC operations planner to fax orders to facility and facilitate time of transport.
--- NOTE | 2020-02-10 15:37 | NUR ---
AWAITING INSURANCE AUTH FOR PT TO GO TO ACUTE REHAB ON 5N. CM FOLLOWING INDICATED WITH DC PLANNING.
[2020-02-10 16:37] VITALS: BP 91/59
[2020-02-10 17:00] VITALS: BP 103/62; BP 98/66
--- NOTE | 2020-02-10 19:21 | NUR ---
VSS-AFEBRILE. LUNGS CLEAR-ROOM AIR. 1 UNIT PRBC ADMINISTERED THIS SHIFT-NO REACTION NOTED. OOB WITH PT/OT-TOLERATED WELL. ALTERNATED USE OF IV AND PO PAIN MEDICATIONS, PARTIAL PAIN RELIEF NOTED. GOOD APPETITE. TWO LARGE, SOFT BM THIS SHIFT. CALLS APPROPRIATELY FOR ANY NEEDED ASSISTANCE.
[2020-02-10 20:11] VITALS: BP 98/66
[2020-02-10 21:38] LABS: HEMATOCRIT 26.8 % (37.0-47.0); HEMOGLOBIN 8.6 gm/dL (12.0-15.0)
[2020-02-10 22:45] LABS: URINE BILIRUBIN NEGATIVE (Negative); URINE BLOOD 2+ (Negative); URINE CLARITY SL CLOUDY; URINE COLOR YELLOW; URINE GLUCOSE-RANDOM* NEGATIVE (Negative); URINE KETONES NEGATIVE (Negative); URINE LEUKOCYTES-REFLEX TRACE (Negative); URINE NITRITE-REFLEX NEGATIVE (Negative); URINE PROTEIN (DIPSTICK) NEGATIVE (Negative); URINE SPECIFIC GRAVITY 1.015 (1.005-1.035)
[2020-02-10 23:01] LABS: SQUAMOUS 0-3 Few /LPF (0-3); URINE RBC 3-10 Few /HPF (0-2)
[2020-02-10 23:02] LABS: BACTERIA-REFLEX >30 Many /HPF (None Seen); CASTS None Seen /LPF (None Seen); CRYSTALS None Seen /LPF (None Seen); URINE WBC-REFLEX 0-5 Rare /HPF (0-5)
--- NOTE | 2020-02-11 01:00 | NUR ---
ASSUMED PT CARE AT 1900. BLOOD FINISHED THIS SHIFT. PAIN MANAGED WITH PO AND IV MEDS. SURGICAL DRESSING CHANGED TONIGHT. UP TO BSC WITH STANDBY AND WALKER. CURRENTLY RESTING IN BED PLAYING ON PHONE, NO OTHER SIGNIFICANT CHANGES TONIGHT.
[2020-02-11 04:20] VITALS: BP 88/60
[2020-02-11 04:55] LABS: ABSOLUTE NEUTROPHILS 3.8 thou/uL (1.4-8.2); BASOPHILS 0.2 % (0.0-2.0); EOSINOPHILS 2.7 % (0.0-3.0); HEMATOCRIT 25.7 % (37.0-47.0); HEMOGLOBIN 8.2 gm/dL (12.0-15.0); LYMPHOCYTES 30.3 % (24.0-44.0); MCH 25.6 pg (26.0-34.0); MCV 79.9 fL (80.0-100.0); MONOCYTES 11.7 % (1.0-8.0); PLATELET COUNT 137 thou/uL (150-400); POLYS 55.1 % (36.0-66.0); RBC 3.22 mil/uL (4.20-5.00)
[2020-02-11 05:41] LABS: ALBUMIN 1.9 g/dL (3.4-5.0); CALCIUM 7.2 mg/dL (8.5-10.1); CREATININE 0.5 mg/dL (0.6-1.0); POTASSIUM 4.1 mmol/L (3.5-5.1); TOTAL BILIRUBIN 1.7 mg/dL (<0.1-1.0); TOTAL PROTEIN 6.1 g/dL (6.4-8.2)
[2020-02-11 07:45] VITALS: BP 100/69
[2020-02-11] MEDS ORDERED: VENOFER200 MG/10 IV PUSH (13:04)
[2020-02-11] MEDS ORDERED: CALTRATE-600 W1 EACH PO (13:04)
[2020-02-11] MEDS ORDERED: COLACE 100 MG100 MG PO (13:04)
[2020-02-11] MEDS ORDERED: VITAMIN D21250 MC1 PO (13:04)
[2020-02-11 16:01] VITALS: BP 100/64
--- NOTE | 2020-02-11 16:05 | NUR ---
PT HAD MRI THIS DAY AND THERE WAS A STREEE FX DETECETED. [facility] WANTS CLARIFICATION TO WHETHER [facility] WILL DO ANY KIND OF INTERVENTION OR NOT AND IF NOT THAT PT CAN AND CAN'T DO IF ADMITTED TO REHAB. CM TO FOLLOW INDICATED WITH DC PLANNING.
[2020-02-11 19:12] VITALS: BP 93/62
--- NOTE | 2020-02-11 19:36 | NUR ---
Assumed care of pt at 0700. Pt a&ox4. Pain controlled with prn pain meds. Dressing on right LE c/d/i. Plan was for pt at go to 5[facility]. MRI of left hip. Fracture found. Pt will have surgery tomorrow. NPO after midnight. Call light within reach.
--- NOTE | 2020-02-11 23:22 | NUR ---
PT AOX4. PT REPORTING PAIN IN RLE AND LEFT HIP. PT RECEIVING PRN IV MORPHINE Q2HR AND PRN PO HYDROCODONE Q4HR. PT REPORTS ANXIETY AND RECENT DIFFICULTY SLEEPING. PT RECEIVING PRN PO AMBIEN QHS. PT AMBULATING TO BEDSIDE COMMODE WITH WALKER AND X1 ASSIST. PT TOLERATING PO INTAKE OF FLUIDS AND REGULAR DIET, PT NPO AT MIDNIGHT. ENCOURAGED PT TO NOTIFY STAFF FOR ALL NEEDS. CALL LIGHT WITHIN REACH, BED ALARM ON, BED IN LOWEST POSITION. WILL CONTINUE TO MONITOR.
[2020-02-12] VITALS (9 sets, daily range): BP systolic 98–120; BP diastolic 59–80
[2020-02-12 05:38] LABS: ABSOLUTE RETIC COUNT 0.1187 10^6/uL; OBSERVED RETIC COUNT 3.62 % (0.6-2.6)
[2020-02-12 05:40] LABS: HEMATOCRIT 26.3 % (37.0-47.0); HEMOGLOBIN 8.5 gm/dL (12.0-15.0); MCH 25.9 pg (26.0-34.0); MCHC 32.5 g/dL (28.0-37.0); MCV 79.9 fL (80.0-100.0); RBC 3.29 mil/uL (4.20-5.00); RDW 20.4 % (10.5-14.5); WBC 6.3 thou/uL (4.0-11.0)
[2020-02-12 05:46] LABS: CALCIUM 7.2 mg/dL (8.5-10.1); CREATININE 0.6 mg/dL (0.6-1.0)
[2020-02-12 05:52] LABS: DIRECT BILIRUBIN 0.3 mg/dL (<0.1-0.2); TOTAL BILIRUBIN 1.6 mg/dL (<0.1-1.0)
--- NOTE | 2020-02-12 14:40 | NUR ---
PT UNDERWENT IM NAILING OF L HIP THIS DAY. [facility] IS FOLLOWING FOR WEIGHT BEARING DIRECTION. CM TO FOLLOW INDICATED WITH DC PLANNING.
--- NOTE | 2020-02-12 17:12 | NUR ---
PATIENT HAD LEFT HIP SURGERY TODAY, ALERT X ORIENTED X4.CALM, COOPERATIVE PATIENT TOLERATING PO FLUIDS AND REGULAR DIET. AMBULATING TO BEDSIDE COMMODE WITH 2 PERSON ASSIST, TOLERATING WELL. CALL LIGHT WITHIN REACH, BED ALARM ON, BED IN LOW POSITION. PAIN CONTROLLED WITH PRN PAIN MEDS.
--- NOTE | 2020-02-13 01:05 | NUR ---
S/P LEFT HIP NAILING. BULK DRSG TO LEFT HIP WELL ICE BRICE. GOOD CIRCULATION, SENSATION AND MOVEMENT NOTED TO LLE. R FOOT WITH BOOT. PT USED BED ROCA ONCE BUT SHE ALSO GOT UP TO THE BSC, HAD A LARGE BM. STOOL FOR OCCULT COLLECTED. PAIN WAS TOO MUCH ESPECIALLY AFTER USING BEDPAN AND ALSO AFTER GETTING UP TO THE BSC. DIULADID X 2 GIVEN BEFORE MIDNOC WELL NORCO. SHE IS ABLE TO SHIFT HER WEIGHT AROUND IN BED GOOD. C/O A MILD HEDACHE EARLIER IN THE SHIFT WHICH WENT AWAY. VSS. AFEBRILE. CONTINUES ON IVF THRO LFA.PT ENCOURAGED TO COUGH AND DEEP BREATH, I/S IS ALSO AVAILABLE FOR USE W/A.PT IS SLOWLY PROGRESSING TOWARDS CARE GOALS.
[2020-02-13 04:00] VITALS: BP 98/60
[2020-02-13 08:00] VITALS: BP 100/63
--- NOTE | 2020-02-13 08:22 | HC ---
[facility] [place] [address] CONSULTATION Name: KELSEA KENNY Room #: 2- ADM IN M.R.#: [id number] Admission: 02/06/20 Attend Phys: Lia Pickens Discharge: Date of : 78 Report #: [id number] THIS REPORT FOR: cc: Zenaida Harmon,Timothy Pepper MD ~ CC: Zenaida Pickens GASTROENTEROLOGY CONSULTATION HISTORY OF PRESENT ILLNESS: The patient is a very pleasant -Maldivian female, 39 years of age, I have been asked to see for further evaluation of her anemia. She was admitted yesterday for acute tib-fib fracture and underwent surgery yesterday. She carries with her diagnosis of anemia, most likely secondary to her gastric bypass. She has had EGD, colonoscopy and pill endoscopy in the last [address] Young. ALLERGIES: No known allergies. PAST MEDICAL HISTORY: Includes scoliosis, fibromyalgia, hypothyroidism, hernia repair, bariatric surgery 2004, cholecystectomy, FOX, depression. SOCIAL HISTORY: She smokes marijuana and cigarettes and drinks on occasion. MEDICATIONS: Adderall, Trintellix, Synthroid, Zenpep, Lyrica and hydrocodone. REVIEW OF SYSTEMS: Negative for weight loss, weakness or fatigue. She denies head, eyes, ears, nose or throat complaints. She denies chest pain, chest palpitation, chest pressure, cough, shortness of breath, wheezing, genitourinary, musculoskeletal or neuropsychiatric complaints. PHYSICAL EXAMINATION: Was not performed. PERTINENT LABORATORY DATA: Hemoglobin 8.1, MCV 75.6, RDW 18.5, white count 6.7. Serum chemistry, notable for no significant abnormality. ASSESSMENT: In summary, the patient has iron deficiency anemia, most likely secondary to remote bariatric surgery and bypass of small bowel. For this reason, she will likely require iron infusions. I will schedule these as an outpatient. Further workup is not necessary as she has had a recent workup in 08/2019 from a GI standpoint as detailed above. We will sign off, but are available as needed. This should be set up through her primary care doctor as an outpatient. [address] [address] CONSULTATION Name: KELSEA KENNY Room #: 442-P ADM IN M.R.#: [id number] Admission: 02/06/20 Attend Phys: Lia Pickens Discharge: Date of : 78 Report #: [id number] Thanks for allowing us to participate in the care of this very nice lady. <ELECTRONICALLY SIGNED> By: Daniel Burgos MD 02/13/20 0822 [id number] Timothy Dickinson MD /nt
--- NOTE | 2020-02-13 11:42 | NUR ---
Assess for length of stay. S/P hip nailing 02/11 following fall at home with fx. Hx gastric bypass surgery in 2004. Has maintained wt, healthy BMI 25. Severe vitamin D deficiency however, 9.1 and endocronologist has started on high ergocalciferol replacement and calcium carbonate. Tolerates oral intake. Low nutrition risk with appropriate nutrition intervention in place. Possible transfer to rehab
--- NOTE | 2020-02-13 13:36 | NUR ---
HARDWARE INSTALLATION COORDINATOR SPOKE WITH ISHAN BROOKS REEL BLADE BENDER FURNACE TENDER WITH DR. SOARES. REHAB WILL BE ABLE TO ACCEPT PATIENT FOR ACUTE INPATIENT STAY. DUE TO PAIN MANAGEMENT ISSUES PLAN WILL BE FOR PATIENT TO ADMIT ON 02/15/20. PATIENT'S INSURANCE CALLED AND AUTHORIZATION IS GOOD FOR ADMISSION DATE THROUGH 02/17/20. SOCIAL WORKER AIDE INFORMED AND WILL NOTIFIY HOSPITALIST. THANK YOU FOR THIS REFERRAL.
--- NOTE | 2020-02-13 13:37 | NUR ---
ON-GOING ASSESSMENT: CM REVIEWED CHART AND SPOKE WITH ATTENDING. PT IS HOPEFUL TO GO TO [facility] AT DISCHARGE. CM SPOKE WITH [facility] WHO STATES THEY CAN ACCEPT THE PATIENT FOR ADMISSION BUT REQUEST TO WAIT UNTIL SUNDAY TO MAKE SURE HER PAIN IS WELL MANAGED. INSURANCE HAS APPROVED PT GOING. PLAN IS TO DISCHARGE TO [facility] ON SUNDAY. ATTENDING AND PATIENT ARE AWARE. PT STATES SHE HAS BEEN IN COMMUINCATION WITH HER DAUGHTER.
--- NOTE | 2020-02-13 15:52 | NUR ---
ASSUMED CARE OF THE PT AT 0700. PT IS MIN ASSIST WITH WALKER AND GAITBELT. PT C/O PAIN, ESPECIALLY AFTER PT/OT, GIVEN PAIN MEDS, SEE EMAR. L FOREARM IV INFILTRATED, IV REPLACED ANOTHER L FORAEM IV DRY AND INTACT. GI SAW PT TODAY. PT REFUSED SCD'S WANTED TO SIT IN CHAIR, ALARM ON. PT CAN TURN SELF. FALL PRECAUTIONS IN PLACE, BED IN THE LOWEST POSITION AND CALL LIGHT IS IWTHIN REACH. WILL CONTINUE TO MONITOR THE PT.
[2020-02-13 16:10] VITALS: BP 103/66
[2020-02-13 19:50] VITALS: BP 101/70
--- NOTE | 2020-02-14 02:22 | NUR ---
ASSUMED PT CARE AT APPROX 1900.PT C/O PAIN ON HER L HIP AND R LEG,MANAGED WITH MED.DRSG ON HER L HIP C/D/I.CAM BOOT STILL ON HER R LEG.PT UP WITH ASSIST X1 WITH GAIT BELT [place] [facility] [place] THIS SHIFT.PT CONT ON IVF.VSS.PT LOOKING FORWARD TO DC TO [facility] LATER IN THE DAY.
[2020-02-14 04:02] VITALS: BP 96/56
[2020-02-14 17:23] VITALS: BP 96/65
[2020-02-14 20:15] VITALS: BP 97/67
--- NOTE | 2020-02-14 20:37 | NUR ---
PT CARE ASSUMED AT 0700. A&Ox4. UP ASSIST WITH ONE. UP TO THE BEDSIDE COMMODE WITH ASSIST, GAITBELT AND WALKER. PT HOLDS THE URGE TO URINATE AND THEN WHEN SHE GOES IT HURTS HER. ICEPACK IN PLACE. BM THIS MORNING. IV FLUIDS INFUSING. PAIN MANAGED BETTER WITH PO MEDS TODAY AFTER ADDING THE SCHEDULED. PT IS SCHEDULED TO TRANSFER TO [facility] TOMORROW AFTER BETTER PAIN MANAGMENT TODAY. FALL PROTOCOL IN PLACE. CALL LIGHT IN REACH. WILL CONTINUE TO MONITOR.
--- NOTE | 2020-02-15 02:43 | NUR ---
PT C/O PAIN ON HER R KNEE,MANAGED WITH MED.UP WITH ASSIST X1/GAIT BELT AND WALKER TO THE BSC.PT HAD A BM THIS SHIFT.L HIP DRSG C/D/I.PT STILL HAS HER CAM BOOT ON HER R LEG.PT CONT ON IVF ORDERED.PT RESTING ON HER BED AT THIS TIME.FALL PRECAUTIONS IN PLACE,CALL LIGHT WITHIN REACH.
[2020-02-15 04:35] VITALS: BP 89/53
[2020-02-15] MEDS ORDERED: HYDROCODON-ACE1 EAC7 PO (09:26)
[2020-02-15] MEDS ORDERED: TRAMADOL 50 MG50 MG PO (09:26)
[2020-02-15] MEDS ORDERED: KEFLEX500 M2 PO (09:28)
[2020-02-15 09:34] VITALS: BP 110/64
[2020-02-15 09:42] LABS: HEMATOCRIT 22.8 % (37.0-47.0); HEMOGLOBIN 7.3 gm/dL (12.0-15.0)
--- NOTE | 2020-02-15 13:22 | NUR ---
PT CARE ASSUMED AT 0700. A&Ox4. PT IS DISCHARGING TO [facility]. SCRIPTS AND SUMMARY SENT TO PHARMACY AND [facility]. WEIGHT TOLERATED ON BOTH LEGS. PAIN MANAGED WITH PO MEDICATION. IV IS STAYING IN PLACE INCASE SHE NEEDS ANOTHER TRANSFUSION AT [facility]. FALL PROTOCOL IN PLACE. CALL LIGHT IN REACH. REPORT CALLED TO [facility].
[2020-02-15] MEDS ORDERED: NIFEREX TABLET1 EACH PO (14:11)
== END 2020-02-15 15:05 | DRG 480 ==
LOC: ER 10:24 → EROBS 14:41 → 4S 14:41
PROVIDERS: Emergency Medicine Emergency Medical Services; Hospitalist; Internal Medicine; Internal Medicine Hematology & Oncology; Nurse Practitioner; Physical Medicine & Rehabilitation; Specialist; ADMIT Hospitalist
PROC: 0QS706Z Reposition Left Upper Femur with Intramedullary Internal Fixation Device, Open Approach (ICD-10-PCS; principal; 2020-02-06)
PROC: 02HV33Z Insertion of Infusion Device into Superior Vena Cava, Percutaneous Approach (ICD-10-PCS; principal; 2020-02-06)
PROC: 0QSG36Z Reposition Right Tibia with Intramedullary Internal Fixation Device, Percutaneous Approach (ICD-10-PCS; 2020-02-07)
PROC: 30233N1 Transfusion of Nonautologous Red Blood Cells into Peripheral Vein, Percutaneous Approach (ICD-10-PCS; 2020-02-08)
PROC: BQ111ZZ Fluoroscopy of Left Hip using Low Osmolar Contrast (ICD-10-PCS; 2020-02-08)
PROC: BQ1DZZZ Fluoroscopy of Right Lower Leg (ICD-10-PCS; 2020-02-08)
DX: S82.251A Displaced comminuted fracture of shaft of right tibia, initial encounter for closed fracture (principal); E43 Unspecified severe protein-calorie malnutrition; D62 Acute posthemorrhagic anemia; N39.0 Urinary tract infection, site not specified; S82.451A Displaced comminuted fracture of shaft of right fibula, initial encounter for closed fracture; D64.89 Other specified anemias; M81.0 Age-related osteoporosis without current pathological fracture; E21.3 Hyperparathyroidism, unspecified; M41.9 Scoliosis, unspecified; E03.9 Hypothyroidism, unspecified; K74.69 Other cirrhosis of liver; K76.0 Fatty (change of) liver, not elsewhere classified; F32.9 Major depressive disorder, single episode, unspecified; F90.9 Attention-deficit hyperactivity disorder, unspecified type; R20.2 Paresthesia of skin; D50.9 Iron deficiency anemia, unspecified; B96.1 Klebsiella pneumoniae [K. pneumoniae] as the cause of diseases classified elsewhere; W18.39XA Other fall on same level, initial encounter; Z96.641 Presence of right artificial hip joint; Z20.828 Contact with and (suspected) exposure to other viral communicable diseases; Z98.84 Bariatric surgery status; Z90.49 Acquired absence of other specified parts of digestive tract; Z79.899 Other long term (current) drug therapy; Y93.89 Activity, other specified; Y92.090 Kitchen in other non-institutional residence as the place of occurrence of the external cause; Y99.8 Other external cause status
CPT/HCPCS: 10195; 50010; 50101; 50386; 51412; 51538; 52304; 56524; 56525; 56526; 57091; 57092; 5713; 5717; 5718; 57501; 57506; 57507; 57925; 57926; 57927; 62110; 62900; 70005

== ENCOUNTER 2020-02-11 11:13 | Inpatient (IN) | payer OTHER ==
[~2020-02-11] VITALS: Ht 154.9 cm; Wt 59.9 kg
--- NOTE | ~2020-02-11 | H ---
[facility] [place] [address] HISTORY AND PHYSICAL Name: KELSEA KENNY Room #: 504-1 ADM IN M.R.#: [id number] Admission: 02/15/20 Attend Phys: Luis Chatman MD Discharge: Date of : 78 Report #: [id number] THIS REPORT FOR: cc: Zenaida Harmon,Zenaida Chatman,Luis Crocker MD ~ CC: Zenaida Chatman DATE OF SERVICE: 02/15/2020 HISTORY AND PHYSICAL AND POST-ADMISSION PHYSICIAN EVALUATION HISTORY OF PRESENT ILLNESS: The patient is a 39-year-old -Italian female who was admitted initially on 02/06/2020 with a right proximal tib-fib fracture after a fall at home. She underwent treatment of right tibia fracture with an intramedullary nail on 02/07/2020, allowed weightbearing as tolerated in a Cam walker boot. During her recovery, she was having some left hip discomfort and x-rays showed a stress fracture of the left femoral neck and she ended up undergoing an intramedullary nail on 02/12/2020. The patient is allowed weightbearing as tolerated. She has a prior history of osteoporosis with malabsorption from previous gastric bypass also a factor and Endocrinology has been following. She also had some anemia postoperative requiring blood transfusion with Gastroenterology involved. The patient has significant functional mobility and ADL deficits and has now been admitted for acute in-hospital inpatient rehabilitation. PAST MEDICAL AND SURGICAL HISTORY: History includes a prior right femur stress fracture, status post intramedullary nail. This was back in 11/2018. Otherwise, her prior history also includes the above noted prior history of gastric bypass with malabsorption syndrome, history of fibromyalgia, scoliosis, cholecystectomy in 2008, gastric bypass was in 2004, history of depression, and anemia. MEDICATIONS: Please see the full medication listing. ALLERGIES: No known drug allergies. SOCIAL HISTORY: Lives at home, 1 step with her daughter and 3-month old grandchild. She premorbidly utilized a cane. She was independent with ADLs, shared IADLs. REVIEW OF SYSTEMS: No current complaints of chest pain, shortness of breath or abdominal discomfort. PHYSICAL EXAMINATION: [facility] [address] [place] [address] HISTORY AND PHYSICAL Name: KELSEA KENNY Room #: 504-1 ADM IN .R.#: [id number] Admission: 02/15/20 Attend Phys: Luis Chatman MD Discharge: Date of : 78 Report #: [id number] GENERAL: A 39-year-old -Italian female in no obvious distress. The patient is alert, pleasant, oriented. She is of slender build. VITAL SIGNS: Last recorded temperature 97.9, pulse 70, respirations 16, and blood pressure 99/62. HEENT: Appeared to be benign. NEUROLOGIC: Cranial nerves are grossly intact. Facies are symmetric. Functional range of motion of both upper extremities without obvious focal weakness. CHEST: Sounded clear to auscultation. CARDIOVASCULAR: Regular rate and rhythm. ABDOMEN: Bowel sounds positive, nontender. GENITOURINARY AND RECTAL: Deferred. EXTREMITIES: Left lateral hip dressing is in place. She has no focal calf swelling. She can dorsiflex the left ankle and appears to have good strength with left ankle dorsiflexion. Right lower extremity proximal strength is at least grade 3+ to 4-/5. She has the right Cam walker boot in place. She can wiggle her toes. Functionally, she has been working on transfers, mod assist to min assist coming to stand. ASSESSMENT: A 39-year-old female with the following problem list: 1. Left femur stress fracture, status post intramedullary nail 02/12/2020. 2. Right tib-fib fracture with nail 02/07/2020. 3. Osteoporosis. 4. Prior gastric bypass with apparent malabsorption. 5. Iron deficiency anemia. 6. Hypothyroidism. 7. Hyperparathyroidism. PLAN: The patient has been admitted for acute in-hospital inpatient rehabilitation. From a postadmission physician evaluation perspective, there are no relevant changes since the preadmission screening. Please see the above review of prior and current medical and functional conditions and comorbidities. Please see the patient's previous and current functional status. As far as risk of complications, the patient has multiple medical comorbidities as noted above. Initial plan of care involves the interdisciplinary acute inpatient rehabilitation program. Measurable functional goals would be for the patient to become modified independent with transfers, mobility, ADLs, so that she can hopefully return back to her prior living situation. Prognosis is reasonably good with estimated length of stay probably at least 10 days to 2 weeks. Potential barriers would include her multiple medical comorbidities and decreased functional status. The patient is allowed weightbearing as tolerated bilateral lower extremities as per Orthopedics. Diagnosis is appropriate for an acute in-hospital inpatient rehabilitation stay. [address] [address] HISTORY AND PHYSICAL Name: KELSEA KENNY Room #: 504-1 ADM IN M.R.#: [id number] Admission: 02/15/20 Attend Phys: Luis Chatman MD Discharge: Date of : 78 Report #: [id number] She meets the medical necessity criteria and we will have the internal consultant physicians continue to follow. She does have the tolerance for therapies and has appropriate discharge goals back to the home setting. By: [id number] Luis Chatman MD /nt
--- NOTE | ~2020-02-11 | HC ---
[facility] [place] [address] CONSULTATION Name: KELSEA KENNY Room #: 504 ADM IN M.R.#: [id number] Admission: 02/15/20 Attend Phys: Luis Chatman MD Discharge: Date of : 78 Report #: [id number] THIS REPORT FOR: cc: Zenaida Harmon Beth RNP Deutch, Neal B. PhD ~ CC: Zenaida Chatman DATE OF SERVICE: 02/20/2020 BEHAVIORAL STATUS EXAM ATTENDING PHYSICIAN: Luis Chatman MD CASTING SORTER: Javier Ellison, PhD CLINICAL PRESENTATION: The patient is a 39-year-old -Yemeni female admitted initially to the [facility] on 02/06/2020 with a right proximal tib-fib fracture after a fall at her home. She underwent an intramedullary nailing on 02/07/2020. During recovery, she reported left hip discomfort and was diagnosed with a stress fracture of the left femoral neck and ended up undergoing intramedullary nailing on 02/12/2020. The patient has a prior history of osteoporosis with malabsorption from a previous gastric bypass procedure. Her diagnostic assessment on the rehab unit includes left femur stress fracture, status post intramedullary nailing on 02/12/2020, right tib-fib fracture with nail on 02/07/2020, osteoporosis, prior gastric bypass with apparent malabsorption, iron deficiency anemia, hypothyroidism and hyperparathyroidism. A complete description of her medical condition and history along with medications can be found in her medical record. Neuropsychological consultation was requested to provide assistance in the assessment of cognitive and emotional status and to provide recommendations and services. Prior to this most recent admission, she was living independently in her own home. She reports having been independent with basic and instrumental activities of daily living. She is a high school graduate. 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 The patient has 2 children. One child in 2006. 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 TECHNIQUES UTILIZED: Clinical interview, review of medical records, staff consultation and behavioral observation, mini mental status exam 2 standard version and clock drawing. [facility] [address] [place] [address] CONSULTATION Name: KELSEA KENNY Room #: 504-1 ADM IN .R.#: [id number] Admission: 02/15/20 Attend Phys: Luis Chatman MD Discharge: Date of : 78 Report #: [id number] EXAMINATION FINDINGS: The patient was alert and cooperative with the assessment. She accurately described the reason for her hospitalization. There is no evidence of aphasia. She does not present with auditory or visual hallucinations. Her thoughts are logical and goal oriented. She reports a history of treatment for depression. She does not report subjective anxiety or depression at this time. She also indicates her memory is within normal limits. The patient does report experiencing difficulty with word finding associated with verbal fluency, difficulty with concentration, sleep and appetite. Energy level is described as within normal limits. Her performance on the MMSE 2 brief version is within normal limits with a raw score of 14/16. She was 3/3 for initial registration, 4/5 for orientation to time, 5/[address] and 2/3 for immediate recall of 3 items after a brief time delay and distraction. Performance on the MMSE 2 standard version was 26/30, which is within normal limits. She was 4/5 for serial sevens, 2/2 for naming, 1/1 for repetition, 3/3 for auditory comprehension. She could read and follow single command and write a sentence. The patient had difficulty with copying a simple geometric design. Clock drawings within normal limits. In general, the patient is alert and oriented. Subtle variability in cognition is noted but no cognitive deficit is suggested currently. DIAGNOSTIC IMPRESSION: Depressive disorder, unspecified (by history). RECOMMENDATIONS: Discussed continued treatment for depression as needed. The patient may benefit from consultation with Bariatric Surgery just to ensure that a proper supplementation is utilized given a history of fractures and osteoporosis. She reports she has not returned for bariatric consultation, and is utilizing supplements based on personal preference. The use of relaxation techniques may also be of benefit to assist in pain management as she continues to recover. Thank you very much for allowing me to provide the consultation on this patient. By: [id number] Javier Ellison, PhD /nt
[~2020-02-11 11:13] MED LIST changes: +HYDROCODON-ACE1 EAC7 PO; +MIRALAX17 GM PO
[2020-02-11] MEDS ORDERED: COLACE 100 MG100 MG PO (13:04)
[2020-02-11] MEDS ORDERED: VITAMIN D21250 MC1 PO (13:04)
[2020-02-11] MEDS ORDERED: VENOFER200 MG/10 IV PUSH (13:04)
[2020-02-11] MEDS ORDERED: CALTRATE-600 W1 EACH PO (13:04)
[2020-02-15] MEDS ORDERED: HYDROCODON-ACE1 EAC7 PO (09:26)
[2020-02-15] MEDS ORDERED: TRAMADOL 50 MG50 MG PO (09:26)
[2020-02-15] MEDS ORDERED: KEFLEX500 M2 PO (09:28)
[2020-02-15] MEDS ORDERED: NIFEREX TABLET1 EACH PO (14:11)
--- NOTE | 2020-02-15 16:11 | NUR ---
PATIENT ARRIVED ON UNIT AROUND 1445, A&O X 4, VSS, O2 ON RA. ADMISSION ASSESSMENT COMPLETED, LUNGS CLEAR BILATERAL, ABD SOFT WITH ACTIVE BOWEL SOUNDS, PULSES IN EXTREMITIES WNL +2. NO WOUNDS OR SKIN TEARS NOTED. DRESSINGS TO L HIP IN PLACE, C/D/I, DRESSING TO RLE IN PLACE C/D/I, CAM BOOT ALSO ON RLE. PT C/O R KNEE PAIN AND RECEIVED PRN NORCO WITH SOME RELIEF, ALSO RECEIVED ZOFRAN 4MG FOR NAUSEA. PT SITTING IN BED, CALL LIGHT WITHIN REACH, WILL CONTINUE TO MONITOR PER POC.
--- NOTE | 2020-02-15 19:13 | NUR ---
PATIENT HAD EPISODE OF N/V X 1, EMESIS AFTER EATING SOUP THAT WAS BOUGHT (BROCCOLI CHEESE SOUP). PT HAD RECEIVED PRN ZOFRAN PRIOR. PT GIVEN DAPHNE WHICH SHE TOLERATED. PT ALSO REPORTED FEELING BETTER.
[2020-02-15 19:42] VITALS: BP 125/66
--- NOTE | 2020-02-16 02:17 | NUR ---
assumed care at approx 1900 evening 02/14. pt alert and oriented x4, appropriate and cooperative. pt with dressing and cam boot in place to right lower leg c/d/i. dressing to left hip clean and dry with slight looseness. pt took hs meds with water tolerating well. pt up to bsc with minimal assist. pt given pain meds as ordered. pt just now fell asleep as pt was talking on the phone until now. bed alarm on and call light in reach. will continue to monitor.
--- NOTE | 2020-02-16 04:07 | NUR ---
pt requested to have left hip dressing removed and changed due to itching. did remove and pt with 3 separate incisions with chris c/d/i. applied folded 4x4 and abd pad to incisions. pt tolerated well. will continue to monitor.
[2020-02-16 06:57] LABS: HEMATOCRIT 23.4 % (37.0-47.0); HEMOGLOBIN 7.6 gm/dL (12.0-15.0); MCH 27.3 pg (26.0-34.0); MCHC 32.5 g/dL (28.0-37.0); MCV 83.9 fL (80.0-100.0); RBC 2.79 mil/uL (4.20-5.00); RDW 24.2 % (10.5-14.5); WBC 6.4 thou/uL (4.0-11.0)
[2020-02-16 07:11] LABS: CALCIUM 7.3 mg/dL (8.5-10.1); CREATININE 0.5 mg/dL (0.6-1.0); POTASSIUM 4.1 mmol/L (3.5-5.1)
[2020-02-16 07:18] VITALS: BP 99/62
--- NOTE | 2020-02-16 13:40 | NUR ---
cindy tried calling anna via phone call, no answer. chart review, she lives with her mom and children, annmarie earl in past. had rehab in past. cm visited her when she was on 4th floor. she reported her family taking care for children while she in hospital. independent when feeling ok. 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 manage own medication and drives vehicle. few steps to enter then everything on main level. will cont following as needed for dc needs.
--- NOTE | 2020-02-16 16:00 | NUR ---
ASSUMED CARE OF PT AT 0700. PT IS A&OX4 AND VITAL SIGNS ARE STABLE. PT REPORTS PAIN IN RLE AND LEFT HIP, MANAGED WITH PO MEDICAITONS AND REST/REPOSTIONING. IV TO LEFT WRIST REMOVED. PARTICIPATED IN SCHEDULED THERAPIES. LABS REVIEWED BY PROVIDER. FALL PRECAUTIONS IN PLACE AND NURSING WILL CONTINUE TO MONITOR.
[2020-02-16 20:01] VITALS: BP 113/74
--- NOTE | 2020-02-17 02:35 | NUR ---
ASSUMED CARE AROUND 1900, PT A&O X 4, NO ACUTE CHANGES OVERNIGHT. VSS, O2 ON RA. PT C/O R KNEE PAIN RELIEVED WITH PRN NORCO. MEDS GIVEN PER ORDERS, TOLERATED WELL. CONTINENT OF B&B, MOD ASSIST X 1 PIVOT TO BSC. LAST BM 02/15/20. DRESSINGS TO L HIP AND RLE IN PLACE, CAM BOOT TO RLE IN PLACE. PT SLEEPING, CALL LIGHT WITHIN REACH, WILL CONTINUE TO MONITOR PER POC.
--- NOTE | 2020-02-17 10:38 | NUR ---
vendor form, hh list choice given to bedside nurse to deliver to pt and place on pt chart.
[2020-02-17 15:53] VITALS: BP 102/68
[2020-02-17 19:23] VITALS: BP 106/75
--- NOTE | 2020-02-17 20:54 | NUR ---
ASSUMED CARE OF PT AT 0700. PT IS A&OX4 AND VITAL SIGNS ARE STABLE. PAIN MANAGED WITH PO MEDICATIONS AND PT PARTICIPATED IN SCHEDULED THERAPIES. ORDERS FROM ORTHO TO DO DRY DRESSING CHANGES TO RLE AND L HIP, PT MAY SHOWER, MUKUL TO BE REMOVED AT 2 WEEKS POST OP. FALL PRECAUTIONS IN PLACE AND NURSING WILL CONTINUE TO MONITOR.
--- NOTE | 2020-02-18 01:58 | NUR ---
PT ALERT AND ORIENTED X 4. UP TO BSC WITH ASSIST X 1. LEFT HIP DRESSING C/D/I. DRESSINGS TO RIGHT KNEE C/D/I. EDEMA OF RIGHT LE NOTED. PT HAS HARD AREA JUST BELOW RIGHT KNEE. PT DENIES PAIN IN THAT AREA. PT C/O PAIN IN RIGHT KNEE. HYDROCODONE GIVEN AT HS. BED ALARM ON FOR SAFETY. PT APPEARS TO BE SLEEPING ON HOURLY ROUNDS.
[2020-02-18 07:30] VITALS: BP 100/74
[2020-02-18 10:22] LABS: HEMATOCRIT 30.8 % (37.0-47.0); MCH 27.7 pg (26.0-34.0); MCHC 32.4 g/dL (28.0-37.0); MCV 85.3 fL (80.0-100.0); RBC 3.61 mil/uL (4.20-5.00); RDW 29.2 % (10.5-14.5); WBC 6.4 thou/uL (4.0-11.0)
[2020-02-18 10:38] LABS: ALBUMIN 2.3 g/dL (3.4-5.0); CALCIUM 7.6 mg/dL (8.5-10.1); CREATININE 0.7 mg/dL (0.6-1.0); POTASSIUM 3.4 mmol/L (3.5-5.1); TOTAL BILIRUBIN 0.8 mg/dL (<0.1-1.0); TOTAL PROTEIN 8.4 g/dL (6.4-8.2)
--- NOTE | 2020-02-18 10:53 | HC ---
[facility] [place] [address] CONSULTATION Name: KELSEA KENNY Room #: 504-1 ADM IN M.R.#: [id number] Admission: 02/15/20 Attend Phys: Luis Chatman MD Discharge: Date of : 78 Report #: [id number] THIS REPORT FOR: cc: Zenaida Harmon Beth RNP Al-Mubaslat, Ahmad MD ~ CC: Zenaida Chatman DATE OF SERVICE: 02/16/2020 CONSULTING PHYSICIAN: Dr. Chatman. REASON FOR CONSULTATION: Osteoporosis, hyperparathyroidism, hypothyroidism. HISTORY OF PRESENT ILLNESS: This is a 39-year-old female patient whose medical background is significant for multiple medical issues including osteoporosis with multiple fractures including a right hip fracture as well as recent issues with right tibiofibular fracture and left stress femoral fracture, as well as longstanding issues with hypothyroidism, vitamin D deficiency, and secondary hyperparathyroidism. The patient has a background of distant gastric bypass surgery for weight loss more than 10 years ago following which she had difficulties with absorption and the above noted vitamin D deficiency as well. Also, the patient is known to have hypothyroidism and had her levothyroxine regimen recently raised from 75 to 100 mcg daily by her primary care physician. The patient was admitted with a right tibiofibular fracture status post ROHITH of the right tibia on 02/07/2020. She is status post nail repair of the stress femoral fracture, left sided on 02/12/2020. She is currently admitted to the rehab unit for rehabilitative efforts. REVIEW OF SYSTEMS: CONSTITUTIONAL: Intermittent issues with fatigue, tiredness. No major weight changes, fever or chills. HEENT: Negative for sore throat, sinus pain, ear drainage. PULMONARY: Negative for shortness of breath, cough or hemoptysis. CARDIAC: Negative for chest pain, palpitations, syncope or presyncope. GASTROINTESTINAL: Noted for intermittent issues with abdominal discomfort, diarrhea, but not nausea or vomiting. NEUROLOGY: Occasional issues with numbness, tingling, lightheadedness, but not seizure activity or severe frequent headaches. SKIN: Negative for rash, ulceration or other major abnormalities. PSYCHIATRIC: Negative for hallucinations, delusions. Otherwise, review of systems noncontributory other than those mentioned in HPI. [address] [address] CONSULTATION Name: KELSEA KENNY Room #: 504-1 ADM IN M.R.#: [id number] Admission: 02/15/20 Attend Phys: Luis Chatman MD Discharge: Date of : 78 Report #: [id number] PAST MEDICAL HISTORY: Noted for: 1. Hypothyroidism. 2. Osteoporosis, status post right hip fracture, status post left stress hip fracture, status post right tibiofibular fracture. 3. Scoliosis. 4. Fibromyalgia. 5. Hypothyroidism. 6. Anemia. 7. NAFLD fatty liver. 8. Depression. 9. Vitamin D deficiency. 10. Hyperparathyroidism. CURRENT MEDICATIONS: Include ergocalciferol 50,000 units weekly, iron sucrose 200 mg daily, levothyroxine 100 mcg daily, calcium carbonate 500 mg b.i.d., cephalexin 500 mg b.i.d., Colace 100 mg at bedtime, pregabalin 200 mg b.i.d., tramadol 50 mg b.i.d. Lipase, protease and amylase 1 capsule with meals, Zofran 4 mg q. 6 hours p.r.n., hydrocodone/acetaminophen q.4 hours p.r.n., mag oxide. FAMILY HISTORY: Noncontributory. SOCIAL HISTORY: The patient is currently single. She has one daughter. 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 Denies use of tobacco, alcohol or illicit drugs. ALLERGIES: No known drug allergies. PHYSICAL EXAMINATION: GENERAL: Pleasant -Burkinan female patient who is not in apparent pain or distress. I saw her while she was actively in the midst of physical therapy session. She was able to stand up with assistance. VITAL SIGNS: Blood pressure 99/62 mmHg, heart rate is 70 beats per minute, respirations 16 per minute, temperature 36.6 degrees Celsius. CONSTITUTIONAL: Appears comfortable, standing up and not in pain or distress. HEENT: Anicteric sclerae. Intact extraocular motions. NECK: Supple, no JVD, no carotid bruits, no lymphadenopathy, no thyromegaly. CHEST: Noted for good air entry bilaterally with scattered rales. No wheeze or crackles. HEART: Regular rate and rhythm without murmurs or gallops. ABDOMEN: Soft, lax. No guarding. Active bowel sounds. EXTREMITIES: Lower extremity exam is noted for surgical dressing around the right lower extremity. NEUROLOGIC: Awake, alert and oriented to time, place and person. The remainder of her examination is largely nonfocal. PSYCHIATRIC: Pleasant, interactive. Normal mood and affect. LABORATORY DATA: White blood count 6.4, hemoglobin 7.6, hematocrit 23.4, [facility] [address] [place] [address] CONSULTATION Name: KELSEA KENNY Room #: 504-1 ADM IN M.R.#: [id number] Admission: 02/15/20 Attend Phys: Luis Chatman MD Discharge: Date of : 78 Report #: [id number] platelets 199, sodium 135, potassium 4.1, chloride 105, carbon dioxide 25, anion gap 5, BUN 7, creatinine 0.5, EGFR 166, calcium 7.3. Free T4 1.2, albumin 1.9, total protein 6.1. Serum protein electrophoresis was unremarkable. TSH 15.99. PTH is 239. Ionized calcium in the low limit of normal of 4.5. ASSESSMENT AND PLAN: 1. Osteoporosis. The patient has lingering issues of osteoporosis with osteoporosis marked by multiple fragility fractures in the past as noted in HPI. The patient was in fact treated with Prolia for about 2 years, but then had to stop it close to 2 years ago due to lapses in her insurance. The patient and I had lengthy discussions about the importance of actively managing osteoporosis, so as to prevent future fractures as much as possible. I had conducted a workup for secondary causes of osteoporosis and they were most noted for confirmation of severe vitamin D deficiency as well as secondary hyperparathyroidism. These issues will need to be addressed individually and efficiently, but I would certainly advise active antiresorptive therapy in the form of Prolia 60 mg q. 6 months. When the patient is settled in the outpatient setting, a baseline DEXA scan would be important to enable an objective followup on her responsiveness to therapy. I stressed the importance of active and continued calcium supplement, which was started at a dose of 500 mg b.i.d. 2. Vitamin D deficiency. This is severe and was measured at 9.1. I believe that this is central to the issue of secondary hyperparathyroidism and I would target a level of over 30. The patient was started on weekly ergocalciferol 50,000 International Units once a week. I would like to obtain a vitamin D level followup in 8 weeks to appreciate whether the patient is trending upwards or not and to help us titrate her dose as needed to achieve these goals. 3. Hyperparathyroidism. This is secondary in nature and associated with low normal calcium levels. This is almost certainly due to severe chronic vitamin D deficiency. I am hopeful to see this aspect improve as we maintain adequate vitamin D replacement and a future followup will be needed to confirm this outlook. 4. Hypothyroidism. This has been longstanding. The patient had a recent appropriate titration of her levothyroxine dose from 75 to 100 mcg daily. Her current thyroid function studies are reflective of inadequate levothyroxine replacement over the past few months that has been addressed sufficiently as of recently. Her TSH will need time to reflect this new change. That said, I advised that she maintains therapy with 100 mcg daily and plan to follow up on this further with TSH and free T4 levels 6-8 weeks from now. I certainly appreciate this consultation by Dr. Chatman. <ELECTRONICALLY SIGNED> By: Bolivar Maynard MD 02/18/20 [id number] Bolivar Maynard MD /nt
--- NOTE | 2020-02-18 17:55 | NUR ---
ASSUMED CARE OF PT AT 0700. PT IS A&OX4 AND VITAL SIGNS ARE STABLE. DRESSINGS TO LEFT HIP AND RIGHT LE CHANGED PER ORDERS. PAIN MANAGED WITH PO MEDICAITONS, PT PARTICIPATED IN SCHEDULED THERAPIES. PT EXPRESSES CONCERN ABOUT CHANGED D/C DATE FOR 02/20 WITH HAVING EQUIPMENT AVAILABLE AND REQUESTED THAT CASE MANAGEMENT TALK TO HER WHEN AVAILABLE. FALL PRECAUTIONS IN PLACE AND NURSING WILL CONTINUE TO MONITOR.
--- NOTE | 2020-02-18 18:05 | NUR ---
DISCHARGE PLANNING UPDATE: PER [facility], REQUEST FOR CONTINUED STAY HAS BEEN PARTIALLY DENIED, AND PT IS ONLY APPROVED TO STAY UNTIL 02/[address] DC [address] DAY[address] DR. SOARES, ISHAN BROOKS NP, AND LOIS KENNEDY WERE NOTIFIED OF THIS VIA MESSAGING. DISCUSSED WITH PATIENT PER DR. SOARES'S RECOMMENDATIONS, AND PT STATED THAT SHE WOULD BE OK WITH DC ON 02/20 LONG SHE HAD THE DME THAT SHE NEEDED. SHE ASKED IF THERAPIES WOULD LOOK INTO A 4WW WITH A SEAT, AND IF THAT WOULD BE A GOOD PIECE OF EQUIPMENT FOR HER. A NOTE WAS SEND PLACED TO P.T. REGARDING THIS REQUEST.
[2020-02-18 19:20] VITALS: BP 97/65
--- NOTE | 2020-02-19 00:26 | NUR ---
PT ALERT AND ORIENTED X 4. UP TO BSC WITH ASSIST X 1. DRESSINGS TO RLE AND LEFT HIP C/D/I. PT C/O PAIN IN RIGHT KNEE. HYDROCODONE GIVEN AT START OF SHIFT. BED ALARM ON FOR SAFETY. PT AWAKE LOOKING AT CELL PHONE ON HOURLY ROUNDS.
[2020-02-19 07:03] VITALS: BP 102/59
--- NOTE | 2020-02-19 08:13 | NUR ---
ASSUMED CARE AT 0700. PATIENT IS ALERT AND ORIENTED X4. PATIENT ANGEL'S, ENROLLMENT SPECIALIST ARE EQUAL. LUNGS ARE CLEAR. ABD IS SOFT WITH BSX4 . PATIENT IS UP IN HER CHAIR FOR BREAKFAST. PATIENT IS UP WITH CAM WALKER BOOT ON RIGHT FOOT. FALL AND SAFETY PROTOCOLS IN PLACE. C/O PAIN IN HIS RIGHT KNEE. MEDICATED WITH PRN PAIN MED. CONTINUES TO PROGRESS SLOWLY TOWARDS D/C GOALS. WILL CONTINUE TO MONITER.
--- NOTE | 2020-02-19 13:59 | NUR ---
cm notified that insurance not going to approve past . dcp moved up to hh and fww. provider plus will bring up fww to pt tomorrow for sunday dc. cm tried x 4 calling pt via phone call to discuss hh companies with pt.
[2020-02-19 19:15] VITALS: BP 110/72
--- NOTE | 2020-02-20 03:42 | NUR ---
assumed care at approx 1900 evening 02/18. pt alert and oriented x4, appropriate and cooperative. pt stated she was tired from therapy. pt given pain meds as ordered and pt took hs meds with water tolerating well. dressings in place c/d/i. pt appears to be sleeping soundly with hourly rounding checks. bed alarm on and call light in reach. will continue to monitor.
[2020-02-20 07:43] VITALS: BP 110/72
--- NOTE | 2020-02-20 07:46 | NUR ---
fww will be delivered today for dc home tomorrow 02/21/2020Sunday. [facility] ( pt, ot, nursing). bedside nurse to fax dc orders to [facility] the day of dc, fax # [phone], phone # [phone].
[2020-02-20 08:00] VITALS: BP 100/71
[2020-02-20 09:01] LABS: ABSOLUTE NEUTROPHILS 2.7 thou/uL (1.4-8.2); BASOPHILS 0.4 % (0.0-2.0); EOSINOPHILS 1.6 % (0.0-3.0); HEMATOCRIT 31.8 % (37.0-47.0); HEMOGLOBIN 10.1 gm/dL (12.0-15.0); LYMPHOCYTES 40.1 % (24.0-44.0); MCH 27.9 pg (26.0-34.0); MCHC 31.8 g/dL (28.0-37.0); MCV 87.8 fL (80.0-100.0); MONOCYTES 7.4 % (1.0-8.0); PLATELET COUNT 336 thou/uL (150-400); POLYS 50.5 % (36.0-66.0); RBC 3.62 mil/uL (4.20-5.00); WBC 5.4 thou/uL (4.0-11.0)
[2020-02-20 09:09] LABS: CALCIUM 7.6 mg/dL (8.5-10.1); CREATININE 0.5 mg/dL (0.6-1.0); MAGNESIUM 2.1 mg/dL (1.8-2.4); POTASSIUM 3.8 mmol/L (3.5-5.1)
[2020-02-20] MEDS ORDERED: NORCO 7.5-3251 EACH PO (10:27)
[2020-02-20] MEDS ORDERED: MIRALAX17 GM PO (10:28)
[2020-02-20] MEDS ORDERED: VITAMIN B-12500 MCG PO (10:28)
[2020-02-20] MEDS ORDERED: ZANAFLEX4 MG PO (10:28)
[2020-02-20] MEDS ORDERED: CALTRATE-600 W1 EACH PO (10:31)
[2020-02-20] MEDS ORDERED: ZENPEP DR 25,01 EAC1 PO (10:31)
[2020-02-20] MEDS ORDERED: COLACE 100 MG100 MG PO (10:31)
[2020-02-20] MEDS ORDERED: VITAMIN D21250 MC1 PO (10:31)
[2020-02-20 11:11] LABS: ANISOCYTOSIS 3+
--- NOTE | 2020-02-20 11:23 | NUR ---
FAXED REFERRAL TO [email or web address] SPOKE MAU GOLDSMITH IN INTAKE SHE RECEIVED ORDERS AND IS AT CAPACITY FOR NURSING, DP TO FOLLOW.
--- NOTE | 2020-02-20 11:42 | NUR ---
ASSUMED CARE OF THE PT AT 0700. PT IS UP WITH KEISHA X1 WITH A GAIT BELT AND WALKER. PAIN CONTROLLED BY PAIN MEDS, SEE EMAR.L HIP COVERED WITH [place] BANAGE, MUKUL DRY AND INTACT. R FEMUR DRESSING COVERED WITH [place] DRESSING AND ABD, SUTURES DRY AND INTACT, ON THE RLE, REDNESS AND ITCHING AND SOME SWELLING, NO SWELLING BEHIND THE LEG OR REDNESS OR WARMTH, LEARNING AND DEVELOPMENT INTERN NOTIFIED AND XRAY DONE. PT HAS NO IV ACCESS. LUNGS ARE CLEAR, PULSES STRONG. PT IS A&O X4, RA AND REG DIET. FALL PRECAUTIONS IN PLACE, BED IN THE LOWEST POSITION/BED ALARM ON AND CALL LIGHT IS WITHIN REACH. WILL CONTINUE TO MONITOR THE PT.
--- NOTE | 2020-02-20 16:40 | NUR ---
FOLLOWED UP WITH [facility] FOR REHAB SHE SPOKE WITH PT'S NURSE AND PT CAN DC WITH ONLY PT/OT AD DC ON 02/20.
[2020-02-20 20:27] VITALS: BP 101/56
--- NOTE | 2020-02-21 00:52 | NUR ---
ASSUMED CARE AROUND 1900, PT A&O X 4, NO ACUTE DISTRESS NOTED. VSS, O2 ON RA. PT C/O RLE PAIN RELIEVED WITH PRN NORCO. MEDS GIVEN PER ORDERS. PT CONTINENT USES BR WITH ASSIST X 1. LAST BM 02/19/20. PT RESTING IN BED, CALL LIGHT WITHIN REACH, WILL CONTINUE TO MONITOR PER POC.
[2020-02-21 06:56] VITALS: BP 110/72
[2020-02-21 08:00] VITALS: BP 98/64
--- NOTE | 2020-02-21 08:03 | NUR ---
ASSUMED CARE AT 0700. PATIENT IS ALERT AND ORIENTED X4. PATIENT ANGEL'S, STREETCAR REPAIRER ARE EQUAL. LUNGS ARE CLEAR. ABD IS SOFT WITH BSX4. UP TO THE BATHROOM WITH WALKER AND GAIT BELT TO VOID SHELLY COLORED URINE. LEFT HIP DRESSING CHANGED, RIGHT KNEE DRESSING CHANGED AFTER STAPLE REMOVEAL STERI-STRIPS APPLIED. CAM WALKER BOOT ON. FALL AND SAFETY PROTOCOLS IN PLACE. PATIENT HAD PAIN MED AT 0540 FOR C/O IN HER RIGHT KNEE. CONTINIUES TO PROGRESS TOWARDS D/C GOALS. PLAN D/C LATER TODAY. WILL CONTINUE TO MONITER.
[2020-02-21 10:27] VITALS: BP 110/72
[2020-02-21 10:46] VITALS: BP 110/72
--- NOTE | 2020-02-21 13:25 | NUR ---
DISCHARGE INSTRUCTIONS GIVEN TO PATIENT. SCRIPTS GIVEN TO PATIENT. PATIENT LEFT UNIT IN GOOD CONDITION WITH ALL OF HER BELONGINGS. PATIENT LEFT VIA W/C TO E.D. WHERE HER FAMILY IS WAITING.
== END 2020-02-21 14:36 | disposition home health service (06) | DRG 563 ==
PROVIDERS: Nurse Practitioner; ADMIT Physical Medicine & Rehabilitation
DX: S82.201A Unspecified fracture of shaft of right tibia, initial encounter for closed fracture (principal); N39.0 Urinary tract infection, site not specified; M81.0 Age-related osteoporosis without current pathological fracture; F32.9 Major depressive disorder, single episode, unspecified; E03.9 Hypothyroidism, unspecified; S82.401A Unspecified fracture of shaft of right fibula, initial encounter for closed fracture; D50.9 Iron deficiency anemia, unspecified; I50.83 High output heart failure; F12.90 Cannabis use, unspecified, uncomplicated; F90.9 Attention-deficit hyperactivity disorder, unspecified type; E83.51 Hypocalcemia; B96.1 Klebsiella pneumoniae [K. pneumoniae] as the cause of diseases classified elsewhere; G89.28 Other chronic postprocedural pain; M25.552 Pain in left hip; Z87.891 Personal history of nicotine dependence; Z90.49 Acquired absence of other specified parts of digestive tract; W18.39XA Other fall on same level, initial encounter; Y93.89 Activity, other specified; Y92.098 Other place in other non-institutional residence as the place of occurrence of the external cause; Y99.8 Other external cause status
CPT/HCPCS: 10112

== ENCOUNTER → 2020-04-20 | Outpatient (CLI) | payer OTHER ==
[~2020-04-20] MED LIST changes: +CALTRATE-600 W1 EACH PO; +COLACE 100 MG100 MG PO; +KEFLEX500 M2 PO; +NIFEREX TABLET1 EACH PO; +NORCO 7.5-3251 EACH PO; +TRAMADOL 50 MG50 MG PO; +VENOFER200 MG/10 IV PUSH; +VITAMIN B-12500 MCG PO; +VITAMIN D21250 MC1 PO; +ZANAFLEX4 MG PO
[2020-04-20 10:05] VITALS: BP 86/49
[2020-04-20 11:55] VITALS: BP 102/66
--- NOTE | 2020-04-20 15:59 | NUR ---
IN FOR 1ST OF 5 VENOFER INFUSIONS. PATIENT STATED FEELING OK, JUST WEAK AND TIRED. ADMISSION HISTORY AND ASSESSMENT COMPLETED. MEDICATION RECONCILED. IV STARTED AND INFUSED VENOFER OVER 1 HOUR. TOLERATED WELL WITHOUT INCIDENT. OBSERVED FOR 15 MINUTES. POST BP GOOD. REMOVED IV AND DISMISSED IN STABLE CONDITION. TO RETURN SUNDAY FOR 2ND INFUSION.
== END ==
LOC: OPONC 04-13 08:22
PROVIDERS: ATTEND Nurse Practitioner
DX: E61.1 Iron deficiency (principal)
CPT/HCPCS: 95000